=== PATIENT | female | born 1955 | race Caucasian/White ===

== ENCOUNTER 2018-01-04 18:01 | Emergency (ER) | payer OTHER ==
[~2018-01-04] VITALS: Ht 152.4 cm; Wt 59.0 kg
[2018-01-05 00:20] VITALS: BP 124/69
== END 2018-01-05 02:05 | disposition home or self-care (01) ==
LOC: ER 18:32
DX: Z48.00 Encounter for change or removal of nonsurgical wound dressing (principal); E11.9 Type 2 diabetes mellitus without complications; Z89.429 Acquired absence of other toe(s), unspecified side; Z87.891 Personal history of nicotine dependence
CPT/HCPCS: 99283

== ENCOUNTER 2022-01-25 05:55 | Inpatient (IN) | payer BC, MEDICAID ==
[~2022-01-25] VITALS: Ht 144.8 cm; Wt 73.9 kg
[2022-01-25] MEDS ORDERED: IPRATROPIUM BROMIDE (0.02%) 0.5MG/2.5ML NEB HHN STA (06:04)
[2022-01-25] MEDS ORDERED: METHYLPREDNISOLONE SOD SUCC 125 MG/2 ML VIAL IV STA (06:06)
[2022-01-25] MEDS ORDERED: MAGNESIUM 2 G PREMIX 50 ML IV ONE (06:15)
[2022-01-25] MEDS: ALBUTEROL (0.083%) 2.5MG/3ML NEB HHN SCH ×2 (06:28→07:46)
[2022-01-25 06:31] LABS: CHLORIDE 108 mEq/L (98-107)
[2022-01-25 06:33] LABS: BASOPHILS % 0.5 % (0.0-2.0); EOSINOPHILS % 1.6 % (0.0-5.0); HEMATOCRIT. 22.7 % (36.0-48.0); HEMOGLOBIN. 7.3 g/dL (12.0-16.0); MEAN CORPUSCULAR HEMOGLOBIN 25.4 pg (28.0-32.0); MEAN CORPUSCULAR VOLUME 78.8 fL (81.0-99.0); MEAN PLATELET VOLUME 7.9 fl (7.4-10.4); MONOCYTES % 5.7 % (2.0-8.0); NEUTROPHILS % 62.2 % (40.0-76.0); PLATELET 326 x1000/uL (130-400); RED BLOOD CELL COUNT 2.88 mill/uL (4.2-5.4); RED CELL DISTRIBUTION WIDTH 15.5 % (11.6-14.6)
[2022-01-25] MEDS ORDERED: DEXTROSE 50% WATER 50ML SYRINGE IV PRN (11:15)
[2022-01-25] MEDS: BLOOD SUGAR DIAGNOSTIC STRIP TEST SCH ×3 (11:40→21:00)
[2022-01-25 12:00] VITALS: BP 130/55
[2022-01-25] MEDS ORDERED: METHYLPREDNISOLONE SOD SUCC 40 MG/ML VIAL IV SCH (12:00)
[2022-01-25] MEDS ORDERED: ONDANSETRON 4MG/5ML UDC PO NR (12:00)
[2022-01-25] MEDS: HYDROCODONE/ACETAMINOPHEN 5/325MG TABLET PO PRN ×2 (12:42→17:19)
[2022-01-25] MEDS: INSULIN LISPRO 100 UNITS/ML SUBCUT SCH ×3 (12:44→21:32)
[2022-01-25] MEDS ORDERED: NALOXONE HCL 0.4MG/ML VIAL IV PRN (12:45)
[2022-01-25] MEDS: IPRATROPIUM BROMIDE (0.02%) 0.5MG/2.5ML NEB HHN SCH ×2 (13:11→20:32)
[2022-01-25] MEDS ORDERED: INSULIN LISPRO 100 UNITS/ML SUBCUT NR (14:00)
[2022-01-25] MEDS ORDERED: INSULIN GLARGINE 100 UNITS/ML SUBCUT NR (14:00)
[2022-01-25] MEDS ORDERED: POTASSIUM CHLORIDE 20MEQ TABLET SR PO NR (15:45)
[2022-01-25 16:00] VITALS: BP 144/61
[2022-01-25] MEDS ORDERED: CEFTRIAXONE 1,000 MG in DEXTROSE 5% WATER 50 ML IV SCH (16:00)
[2022-01-25] MEDS: FUROSEMIDE 40MG/4ML VIAL IVP SCH (16:04)
[2022-01-25 16:16] VITALS: BP 131/61
[2022-01-25] MEDS ORDERED: MORPHINE SULFATE 2 MG/ML CPJ (NOT FOR IM USE) IV NR (18:30)
[2022-01-25] MEDS ORDERED: ASPI-1497 PO (18:32)
[2022-01-25] MEDS ORDERED: METF-874 PO (18:35)
[2022-01-25] MEDS ORDERED: AMLO10TA80 PO (18:35)
[2022-01-25] MEDS ORDERED: GLIM2TAB30 PO (18:35)
[2022-01-25] MEDS ORDERED: HYDR25TA PO (18:35)
[2022-01-25 20:00] VITALS: BP 143/66
[2022-01-25 20:44] LABS: CLARITY URINE CLOUDY (CLEAR); COLOR URINE YELLOW (YELLOW); KETONES URINE NEGATIVE (NEGATIVE); LEUKOCYTE ESTERASE URINE 3+ (NEGATIVE); NITRITE URINE NEGATIVE (NEGATIVE); OCCULT BLOOD URINE TRACE (NEGATIVE); PROTEIN URINE 2+ (NEGATIVE); SPECIFIC GRAVITY URINE 1.014 (1.005-1.030); UROBILINOGEN URINE 0.2 E.U./dL (0.2-1.0)
[2022-01-25] MEDS ORDERED: FAMOTIDINE 20MG TABLET PO SCH (21:00)
[2022-01-26] VITALS (36 sets, daily range): BP systolic 116–158; BP diastolic 63–86
[2022-01-26] MEDS: HYDROCODONE/ACETAMINOPHEN 5/325MG TABLET PO PRN (00:09)
[2022-01-26] MEDS: IPRATROPIUM BROMIDE (0.02%) 0.5MG/2.5ML NEB HHN SCH ×4 (01:25→17:00)
[2022-01-26] MEDS ORDERED: MORPHINE SULFATE 2 MG/ML CPJ (NOT FOR IM USE) IV SCH (05:15)
[2022-01-26] MEDS: PROPOFOL 10MG/ML 100ML 100 ML IV PRN ×2 (06:28→23:37)
[2022-01-26] MEDS: FENTANYL 2500MCG/250ML PMX 250 ML IV PRN (07:01)
[2022-01-26 07:09] LABS: BG BASE EXCESS -10.7 mmol/L (-2.0-2.0); BG CARBOXYHEMOGLOBIN 0.3 % (0.5-1.5); BG DEOXYHEMOGLOBIN 0.5 % (0.0-5.0); BG FRACTION INSPIRED OXYGEN 100; BG HCO3 ACT 15.2 mmol/L (22.0-26.0); BG METHEMOGLOBIN 0.3 % (0.0-1.5); BG OXYGEN SATURATION 99.5 % (92.0-98.5); BG OXYHEMOGLOBIN 98.9 % (94.0-97.0); BG PCO2 33.4 mmHg (35.0-45.0); BG PH 7.275 (7.350-7.450); BG PO2 338.8 mmHg (75.0-100.0); BG SAMPLE SITE RIGHT RADIAL; BG TOTAL HEMOGLOBIN 7.1 g/dL (12.0-18.0); BG VENT MODE VENT - AC
[2022-01-26 07:21] LABS: MEAN CORPUSCULAR HEMOGLOBIN 25.7 pg (28.0-32.0); MEAN CORPUSCULAR VOLUME 79.1 fL (81.0-99.0); MEAN PLATELET VOLUME 8.1 fl (7.4-10.4); PLATELET 282 x1000/uL (130-400); RED BLOOD CELL COUNT 2.56 mill/uL (4.2-5.4); RED CELL DISTRIBUTION WIDTH 16.1 % (11.6-14.6)
[2022-01-26 07:32] LABS: HEMATOCRIT. 20.3 % (36.0-48.0); HEMOGLOBIN. 6.6 g/dL (12.0-16.0)
[2022-01-26] MEDS ORDERED: LIDOCAINE HCL 1% 20ML VIAL (Pyxis) INJ ONE (08:11)
[2022-01-26] MEDS: BLOOD SUGAR DIAGNOSTIC STRIP TEST SCH ×4 (08:45→21:00)
[2022-01-26 08:52] LABS: PLATELET ESTIMATE NORMAL
[2022-01-26] MEDS: FUROSEMIDE 40MG/4ML VIAL IVP SCH (09:22)
[2022-01-26] MEDS: INSULIN LISPRO 100 UNITS/ML SUBCUT SCH ×4 (09:23→21:00)
[2022-01-26] MEDS: PIPERACILLIN/TAZOBACTAM 3.375 G in DEXTROSE 5% WATER 50 ML IV SCH ×3 (09:28→23:18)
[2022-01-26] MEDS ORDERED: INSULIN GLARGINE 100 UNITS/ML SUBCUT NR (10:15)
[2022-01-26] MEDS: SODIUM CHLORIDE 0.9% 1,000 ML IV SCH ×2 (10:36→23:35)
[2022-01-26 11:46] LABS: PROTHROMBIN TIME 10.9 sec (9.6-11.0)
[2022-01-26 11:52] LABS: TOTAL IRON BINDING CAPACITY 328 ug/dL (250-450)
[2022-01-26] MEDS ORDERED: IPRATROPIUM/ALBUTEROL 0.5-3(2.5)MG/3ML NEB HHN PRN (13:15)
[2022-01-26] MEDS ORDERED: PROPOFOL 10MG/ML 100ML 100 ML IV PRN (13:15)
[2022-01-26 15:28] LABS: HEMATOCRIT 27.2 % (36.0-48.0)
[2022-01-26] MEDS: PANTOPRAZOLE SODIUM 40 MG/VIAL IV SCH ×2 (15:34→23:27)
[2022-01-26] MEDS: IPRATROPIUM/ALBUTEROL 0.5-3(2.5)MG/3ML NEB HHN SCH (21:15)
[2022-01-26] MEDS: INSULIN GLARGINE 100 UNITS/ML SUBCUT SCH (22:00)
[2022-01-27] VITALS (60 sets, daily range): BP systolic 73–176; BP diastolic 47–93
[2022-01-27] MEDS: IPRATROPIUM BROMIDE (0.02%) 0.5MG/2.5ML NEB HHN SCH (00:37)
[2022-01-27 05:42] LABS: HEMATOCRIT. 26.9 % (36.0-48.0); HEMOGLOBIN. 9.5 g/dL (12.0-16.0); MEAN CORPUSCULAR HEMOGLOBIN 27.8 pg (28.0-32.0); MEAN CORPUSCULAR VOLUME 78.3 fL (81.0-99.0); MEAN PLATELET VOLUME 7.9 fl (7.4-10.4); PLATELET 245 x1000/uL (130-400); RED BLOOD CELL COUNT 3.43 mill/uL (4.2-5.4); RED CELL DISTRIBUTION WIDTH 16.4 % (11.6-14.6)
[2022-01-27] MEDS: PIPERACILLIN/TAZOBACTAM 3.375 G in DEXTROSE 5% WATER 50 ML IV SCH ×3 (07:14→21:33)
[2022-01-27 08:19] LABS: PLATELET ESTIMATE NORMAL
[2022-01-27] MEDS: INSULIN LISPRO 100 UNITS/ML SUBCUT SCH ×4 (08:20→21:00)
[2022-01-27] MEDS: BLOOD SUGAR DIAGNOSTIC STRIP TEST SCH ×4 (08:33→21:33)
[2022-01-27] MEDS: IPRATROPIUM/ALBUTEROL 0.5-3(2.5)MG/3ML NEB HHN SCH ×3 (08:47→20:13)
[2022-01-27 08:53] LABS: BG BASE EXCESS -1.4 mmol/L (-2.0-2.0); BG CARBOXYHEMOGLOBIN 0.3 % (0.5-1.5); BG DEOXYHEMOGLOBIN 2.1 % (0.0-5.0); BG FRACTION INSPIRED OXYGEN 40; BG HCO3 ACT 20.3 mmol/L (22.0-26.0); BG METHEMOGLOBIN 0.2 % (0.0-1.5); BG OXYGEN SATURATION 97.9 % (92.0-98.5); BG OXYHEMOGLOBIN 97.4 % (94.0-97.0); BG PCO2 24.9 mmHg (35.0-45.0); BG PH 7.529 (7.350-7.450); BG PO2 107.2 mmHg (75.0-100.0); BG SAMPLE SITE RIGHT BRACHIAL; BG TOTAL HEMOGLOBIN 10.1 g/dL (12.0-18.0); BG VENT MODE VENT - AC
[2022-01-27] MEDS: PANTOPRAZOLE SODIUM 40 MG/VIAL IV SCH ×2 (09:44→21:33)
[2022-01-27] MEDS: SODIUM CHLORIDE 0.9% 1,000 ML IV SCH ×2 (10:01→23:06)
[2022-01-27] MEDS: INSULIN GLARGINE 100 UNITS/ML SUBCUT SCH (10:21)
[2022-01-27] MEDS: AMLODIPINE 10MG TABLET PO SCH (10:21)
[2022-01-27 11:58] LABS: CREATINE KINASE 299 IU/L (26-192)
[2022-01-27] MEDS ORDERED: HYDRALAZINE HCL 50MG TABLET PO SCH ×3 (12:00→21:00)
[2022-01-27] MEDS: HYDRALAZINE HCL 100MG TABLET PO SCH ×2 (17:29→21:33)
[2022-01-28] VITALS (43 sets, daily range): BP systolic 107–176; BP diastolic 38–137
[2022-01-28] MEDS: FENTANYL 2500MCG/250ML PMX 250 ML IV PRN (00:18)
[2022-01-28] MEDS: IPRATROPIUM/ALBUTEROL 0.5-3(2.5)MG/3ML NEB HHN SCH ×4 (02:38→20:16)
[2022-01-28 05:38] LABS: BASOPHILS % 0.1 % (0.0-2.0); HEMOGLOBIN. 9.4 g/dL (12.0-16.0)
[2022-01-28 05:49] LABS: EOSINOPHILS % 0.2 % (0.0-5.0); HEMATOCRIT. 27.3 % (36.0-48.0); LYMPHOCYTES % 8.2 % (20.0-50.0); MEAN CORPUSCULAR HEMOGLOBIN 27.6 pg (28.0-32.0); MEAN CORPUSCULAR VOLUME 79.9 fL (81.0-99.0); MONOCYTES % 7.8 % (2.0-8.0); NEUTROPHILS % 83.7 % (40.0-76.0); PLATELET 219 x1000/uL (130-400); RED BLOOD CELL COUNT 3.41 mill/uL (4.2-5.4); RED CELL DISTRIBUTION WIDTH 16.6 % (11.6-14.6)
[2022-01-28] MEDS: HYDRALAZINE HCL 100MG TABLET PO SCH ×3 (06:12→21:21)
[2022-01-28] MEDS: PIPERACILLIN/TAZOBACTAM 3.375 G in DEXTROSE 5% WATER 50 ML IV SCH ×3 (06:12→21:22)
[2022-01-28 06:24] LABS: PHOSPHORUS 4.3 mg/dL (2.5-4.9)
[2022-01-28 08:27] LABS: BG BASE EXCESS -3.1 mmol/L (-2.0-2.0); BG CARBOXYHEMOGLOBIN 0.1 % (0.5-1.5); BG DEOXYHEMOGLOBIN 3.2 % (0.0-5.0); BG FRACTION INSPIRED OXYGEN 30; BG HCO3 ACT 21.5 mmol/L (22.0-26.0); BG METHEMOGLOBIN 0.3 % (0.0-1.5); BG OXYGEN SATURATION 96.8 % (92.0-98.5); BG OXYHEMOGLOBIN 96.4 % (94.0-97.0); BG PCO2 36.8 mmHg (35.0-45.0); BG PH 7.385 (7.350-7.450); BG PO2 92.4 mmHg (75.0-100.0); BG SAMPLE SITE RIGHT BRACHIAL; BG TOTAL HEMOGLOBIN 10.1 g/dL (12.0-18.0); BG VENT MODE VENT - AC
[2022-01-28] MEDS ORDERED: SODIUM BICARBONATE 8.4% 1 MEQ/ML 50ML SYR IV ONE (08:56)
[2022-01-28] MEDS: PANTOPRAZOLE SODIUM 40 MG/VIAL IV SCH ×2 (09:37→20:36)
[2022-01-28] MEDS: AMLODIPINE 10MG TABLET PO SCH (09:39)
[2022-01-28] MEDS: BLOOD SUGAR DIAGNOSTIC STRIP TEST SCH ×4 (12:15→20:35)
[2022-01-28] MEDS: INSULIN LISPRO 100 UNITS/ML SUBCUT SCH ×4 (12:23→20:35)
[2022-01-28 14:04] LABS: BG BASE EXCESS -4.6 mmol/L (-2.0-2.0); BG CARBOXYHEMOGLOBIN 0.3 % (0.5-1.5); BG DEOXYHEMOGLOBIN 4.1 % (0.0-5.0); BG FRACTION INSPIRED OXYGEN 30; BG HCO3 ACT 19.7 mmol/L (22.0-26.0); BG METHEMOGLOBIN 0.2 % (0.0-1.5); BG OXYGEN SATURATION 95.9 % (92.0-98.5); BG OXYHEMOGLOBIN 95.4 % (94.0-97.0); BG PCO2 33.6 mmHg (35.0-45.0); BG PH 7.387 (7.350-7.450); BG PO2 84.6 mmHg (75.0-100.0); BG SAMPLE SITE RIGHT RADIAL; BG TOTAL HEMOGLOBIN 10.1 g/dL (12.0-18.0); BG VENT MODE VENT - CPAP
[2022-01-28] MEDS: SODIUM CHLORIDE 0.9% 1,000 ML IV SCH (14:47)
[2022-01-28] MEDS ORDERED: IPRATROPIUM BROMIDE (0.02%) 0.5MG/2.5ML NEB HHN SCH (23:30)
[2022-01-29] VITALS (45 sets, daily range): BP systolic 113–200; BP diastolic 32–90
[2022-01-29] MEDS: IPRATROPIUM/ALBUTEROL 0.5-3(2.5)MG/3ML NEB HHN SCH ×4 (00:03→20:17)
[2022-01-29] MEDS: ACETYLCYSTEINE 100MG/ML 10% VIAL 4ML INH SCH ×4 (00:03→12:48)
[2022-01-29 01:42] LABS: BG CARBOXYHEMOGLOBIN 0.3 % (0.5-1.5); BG DEOXYHEMOGLOBIN 1.5 % (0.0-5.0); BG FRACTION INSPIRED OXYGEN 100; BG HCO3 ACT 17.3 mmol/L (22.0-26.0); BG OXYGEN SATURATION 98.5 % (92.0-98.5); BG OXYHEMOGLOBIN 98.2 % (94.0-97.0); BG PCO2 30.5 mmHg (35.0-45.0); BG PH 7.371 (7.350-7.450); BG PO2 149.7 mmHg (75.0-100.0); BG SAMPLE SITE LEFT RADIAL; BG TOTAL HEMOGLOBIN 9.7 g/dL (12.0-18.0); BG VENT MODE MASK - NRB
[2022-01-29] MEDS: PIPERACILLIN/TAZOBACTAM 3.375 G in DEXTROSE 5% WATER 50 ML IV SCH ×3 (05:25→21:39)
[2022-01-29] MEDS: HYDRALAZINE HCL 100MG TABLET PO SCH ×3 (05:26→21:38)
[2022-01-29 05:40] LABS: HEMATOCRIT. 27.2 % (36.0-48.0); HEMOGLOBIN. 8.8 g/dL (12.0-16.0); MEAN CORPUSCULAR HEMOGLOBIN 26.2 pg (28.0-32.0); MEAN CORPUSCULAR VOLUME 80.9 fL (81.0-99.0); MEAN PLATELET VOLUME 7.8 fl (7.4-10.4); PLATELET 211 x1000/uL (130-400); RED BLOOD CELL COUNT 3.36 mill/uL (4.2-5.4); RED CELL DISTRIBUTION WIDTH 16.4 % (11.6-14.6)
[2022-01-29] MEDS: INSULIN LISPRO 100 UNITS/ML SUBCUT SCH ×3 (08:03→18:21)
[2022-01-29] MEDS: BLOOD SUGAR DIAGNOSTIC STRIP TEST SCH ×4 (08:03→18:06)
[2022-01-29 08:04] LABS: PLATELET ESTIMATE NORMAL
[2022-01-29] MEDS: PANTOPRAZOLE SODIUM 40 MG/VIAL IV SCH ×2 (08:24→21:38)
[2022-01-29] MEDS: AMLODIPINE 10MG TABLET PO SCH (08:25)
[2022-01-29] MEDS ORDERED: FUROSEMIDE 20MG/2ML VIAL IVP NR (09:15)
[2022-01-29] MEDS: DOCUSATE SODIUM SUGAR FREE 100MG/10ML UDC NG SCH (18:20)
[2022-01-30] VITALS (52 sets, daily range): BP systolic 122–163; BP diastolic 39–99
[2022-01-30] MEDS: BLOOD SUGAR DIAGNOSTIC STRIP TEST SCH ×4 (00:26→23:43)
[2022-01-30] MEDS: IPRATROPIUM/ALBUTEROL 0.5-3(2.5)MG/3ML NEB HHN SCH ×4 (00:35→21:41)
[2022-01-30] MEDS: ONDANSETRON HCL 4MG/2ML INJ IV PRN ×3 (01:23→21:30)
[2022-01-30 02:30] LABS: BG BASE EXCESS -7.9 mmol/L (-2.0-2.0); BG CARBOXYHEMOGLOBIN 0.3 % (0.5-1.5); BG DEOXYHEMOGLOBIN 4.3 % (0.0-5.0); BG FRACTION INSPIRED OXYGEN 100; BG HCO3 ACT 17.9 mmol/L (22.0-26.0); BG METHEMOGLOBIN 0.4 % (0.0-1.5); BG OXYGEN SATURATION 95.7 % (92.0-98.5); BG PCO2 37.5 mmHg (35.0-45.0); BG PH 7.297 (7.350-7.450); BG PO2 89.3 mmHg (75.0-100.0); BG SAMPLE SITE LEFT RADIAL; BG VENT MODE MASK - NRB
[2022-01-30] MEDS ORDERED: SODIUM BICARBONATE 8.4% 1 MEQ/ML 50ML SYR IV NR (02:45)
[2022-01-30] MEDS: FENTANYL 2500MCG/250ML PMX 250 ML IV PRN (03:18)
[2022-01-30 04:19] LABS: BG BASE EXCESS -5.1 mmol/L (-2.0-2.0); BG CARBOXYHEMOGLOBIN 0.3 % (0.5-1.5); BG DEOXYHEMOGLOBIN 7.4 % (0.0-5.0); BG FRACTION INSPIRED OXYGEN 100; BG HCO3 ACT 19.8 mmol/L (22.0-26.0); BG METHEMOGLOBIN 0.3 % (0.0-1.5); BG OXYGEN SATURATION 92.6 % (92.0-98.5); BG PCO2 36.4 mmHg (35.0-45.0); BG PH 7.354 (7.350-7.450); BG PO2 69.9 mmHg (75.0-100.0); BG SAMPLE SITE LEFT RADIAL; BG TOTAL HEMOGLOBIN 10.2 g/dL (12.0-18.0); BG VENT MODE VENT - AC
[2022-01-30] MEDS ORDERED: DEXT 5%/0.45% NACL 1000ML 1,000 ML IV SCH (04:30)
[2022-01-30] MEDS: HYDRALAZINE HCL 100MG TABLET PO SCH ×3 (05:02→21:23)
[2022-01-30] MEDS: PIPERACILLIN/TAZOBACTAM 3.375 G in DEXTROSE 5% WATER 50 ML IV SCH ×3 (05:02→21:22)
[2022-01-30] MEDS: INSULIN LISPRO 100 UNITS/ML SUBCUT SCH ×5 (05:06→23:42)
[2022-01-30] MEDS: MIDAZOLAM 100MG/100ML PMX 100 ML IV PRN (05:21)
[2022-01-30 05:40] LABS: HEMATOCRIT. 28.5 % (36.0-48.0); HEMOGLOBIN. 9.2 g/dL (12.0-16.0); MEAN CORPUSCULAR HEMOGLOBIN 26.3 pg (28.0-32.0); MEAN CORPUSCULAR VOLUME 81.5 fL (81.0-99.0); MEAN PLATELET VOLUME 8.1 fl (7.4-10.4); PLATELET 234 x1000/uL (130-400); RED BLOOD CELL COUNT 3.49 mill/uL (4.2-5.4); RED CELL DISTRIBUTION WIDTH 16.4 % (11.6-14.6)
[2022-01-30 05:55] LABS: PHOSPHORUS 4.2 mg/dL (2.5-4.9)
[2022-01-30] MEDS: ACETYLCYSTEINE 100MG/ML 10% VIAL 4ML INH SCH ×2 (07:32→14:08)
[2022-01-30 07:35] LABS: PLATELET ESTIMATE NORMAL
[2022-01-30] MEDS: AMLODIPINE 10MG TABLET PO SCH (08:32)
[2022-01-30] MEDS: DOCUSATE SODIUM SUGAR FREE 100MG/10ML UDC NG SCH (08:32)
[2022-01-30] MEDS: PANTOPRAZOLE SODIUM 40 MG/VIAL IV SCH ×2 (08:32→21:23)
[2022-01-30] MEDS ORDERED: ETOMIDATE 2MG/ML 10ML VIAL IV ONE (08:48)
[2022-01-30] MEDS ORDERED: SUCCINYLCHOLINE CHLORIDE 200MG/10ML IV ONE (08:48)
[2022-01-30 09:03] LABS: BG BASE EXCESS -4.8 mmol/L (-2.0-2.0); BG CARBOXYHEMOGLOBIN 0.3 % (0.5-1.5); BG DEOXYHEMOGLOBIN 0.8 % (0.0-5.0); BG FRACTION INSPIRED OXYGEN 100; BG METHEMOGLOBIN 0.4 % (0.0-1.5); BG OXYGEN SATURATION 99.2 % (92.0-98.5); BG OXYHEMOGLOBIN 98.5 % (94.0-97.0); BG PCO2 35.8 mmHg (35.0-45.0); BG PH 7.366 (7.350-7.450); BG PO2 273.8 mmHg (75.0-100.0); BG SAMPLE SITE LEFT BRACHIAL; BG TOTAL HEMOGLOBIN 8.8 g/dL (12.0-18.0); BG VENT MODE VENT - AC
[2022-01-30] MEDS: METOCLOPRAMIDE HCL 10MG/2ML VIAL IV SCH ×2 (17:21→23:42)
[2022-01-31] VITALS (46 sets, daily range): BP systolic 120–152; BP diastolic 52–75
[2022-01-31] MEDS: IPRATROPIUM/ALBUTEROL 0.5-3(2.5)MG/3ML NEB HHN SCH ×4 (00:56→18:00)
[2022-01-31] MEDS: ACETYLCYSTEINE 100MG/ML 10% VIAL 4ML INH SCH ×3 (00:56→14:52)
[2022-01-31] MEDS: PIPERACILLIN/TAZOBACTAM 3.375 G in DEXTROSE 5% WATER 50 ML IV SCH ×3 (05:27→21:09)
[2022-01-31] MEDS: METOCLOPRAMIDE HCL 10MG/2ML VIAL IV SCH ×4 (05:27→23:23)
[2022-01-31] MEDS: BLOOD SUGAR DIAGNOSTIC STRIP TEST SCH ×3 (05:28→16:58)
[2022-01-31] MEDS: HYDRALAZINE HCL 100MG TABLET PO SCH (05:28)
[2022-01-31] MEDS: INSULIN LISPRO 100 UNITS/ML SUBCUT SCH ×3 (05:28→16:58)
[2022-01-31 05:39] LABS: HEMATOCRIT. 24.4 % (36.0-48.0); HEMOGLOBIN. 8.1 g/dL (12.0-16.0); MEAN CORPUSCULAR HEMOGLOBIN 26.8 pg (28.0-32.0); MEAN CORPUSCULAR VOLUME 81.2 fL (81.0-99.0); MEAN PLATELET VOLUME 8.2 fl (7.4-10.4); PLATELET 204 x1000/uL (130-400); RED BLOOD CELL COUNT 3.01 mill/uL (4.2-5.4); RED CELL DISTRIBUTION WIDTH 16.3 % (11.6-14.6)
[2022-01-31 07:24] LABS: PLATELET ESTIMATE NORMAL
[2022-01-31] MEDS: PANTOPRAZOLE SODIUM 40 MG/VIAL IV SCH ×2 (07:48→21:09)
[2022-01-31] MEDS: ONDANSETRON HCL 4MG/2ML INJ IV PRN (07:48)
[2022-01-31] MEDS: AMLODIPINE 10MG TABLET PO SCH (07:48)
[2022-01-31] MEDS: DOCUSATE SODIUM SUGAR FREE 100MG/10ML UDC NG SCH (07:48)
[2022-01-31] MEDS: ACETAMINOPHEN 325MG TABLET PO PRN ×2 (08:08→19:38)
[2022-01-31 09:03] LABS: BG CARBOXYHEMOGLOBIN 0.3 % (0.5-1.5); BG DEOXYHEMOGLOBIN 8.3 % (0.0-5.0); BG FRACTION INSPIRED OXYGEN 40; BG HCO3 ACT 21.6 mmol/L (22.0-26.0); BG METHEMOGLOBIN 0.5 % (0.0-1.5); BG OXYGEN SATURATION 91.6 % (92.0-98.5); BG OXYHEMOGLOBIN 90.9 % (94.0-97.0); BG PCO2 32.2 mmHg (35.0-45.0); BG PH 7.445 (7.350-7.450); BG SAMPLE SITE LEFT BRACHIAL; BG TOTAL HEMOGLOBIN 8.4 g/dL (12.0-18.0); BG VENT MODE VENT - AC
[2022-01-31] MEDS: FUROSEMIDE 100MG/10ML VIAL IVP SCH (12:45)
[2022-01-31] MEDS: METHYLPREDNISOLONE SOD SUCC 40 MG/ML VIAL IV SCH ×2 (12:45→21:09)
[2022-01-31 13:39] LABS: CLARITY URINE CLOUDY (CLEAR); COLOR URINE YELLOW (YELLOW); KETONES URINE TRACE (NEGATIVE); LEUKOCYTE ESTERASE URINE 2+ (NEGATIVE); NITRITE URINE NEGATIVE (NEGATIVE); OCCULT BLOOD URINE NEGATIVE (NEGATIVE); PROTEIN URINE 2+ (NEGATIVE); SPECIFIC GRAVITY URINE 1.022 (1.005-1.030)
[2022-01-31] MEDS: MIDAZOLAM 100MG/100ML PMX 100 ML IV PRN (20:54)
[2022-01-31] MEDS: FENTANYL 2500MCG/250ML PMX 250 ML IV PRN (23:53)
[2022-02-01] VITALS (50 sets, daily range): BP systolic 74–173; BP diastolic 28–91
[2022-02-01] MEDS: BLOOD SUGAR DIAGNOSTIC STRIP TEST SCH ×4 (00:05→17:33)
[2022-02-01] MEDS: INSULIN LISPRO 100 UNITS/ML SUBCUT SCH ×4 (00:05→17:34)
[2022-02-01] MEDS: IPRATROPIUM/ALBUTEROL 0.5-3(2.5)MG/3ML NEB HHN SCH ×4 (00:41→20:17)
[2022-02-01] MEDS: ACETYLCYSTEINE 100MG/ML 10% VIAL 4ML INH SCH ×3 (00:41→15:45)
[2022-02-01] MEDS: METOCLOPRAMIDE HCL 10MG/2ML VIAL IV SCH ×3 (05:21→17:33)
[2022-02-01] MEDS: METHYLPREDNISOLONE SOD SUCC 40 MG/ML VIAL IV SCH ×3 (05:21→21:13)
[2022-02-01] MEDS: PIPERACILLIN/TAZOBACTAM 3.375 G in DEXTROSE 5% WATER 50 ML IV SCH ×2 (05:22→21:13)
[2022-02-01 05:35] LABS: HEMATOCRIT. 24.8 % (36.0-48.0); HEMOGLOBIN. 8.1 g/dL (12.0-16.0); MEAN CORPUSCULAR HEMOGLOBIN 26.6 pg (28.0-32.0); MEAN CORPUSCULAR VOLUME 81.2 fL (81.0-99.0); MEAN PLATELET VOLUME 8.4 fl (7.4-10.4); PLATELET 214 x1000/uL (130-400); RED BLOOD CELL COUNT 3.06 mill/uL (4.2-5.4); RED CELL DISTRIBUTION WIDTH 16.5 % (11.6-14.6)
[2022-02-01 05:45] LABS: PHOSPHORUS 4.2 mg/dL (2.5-4.9)
[2022-02-01] MEDS: FUROSEMIDE 100MG/10ML VIAL IVP SCH (08:22)
[2022-02-01] MEDS: AMLODIPINE 10MG TABLET PO SCH (08:22)
[2022-02-01] MEDS: DOCUSATE SODIUM SUGAR FREE 100MG/10ML UDC NG SCH (08:22)
[2022-02-01] MEDS: PANTOPRAZOLE SODIUM 40 MG/VIAL IV SCH ×2 (08:24→21:13)
[2022-02-01] MEDS: ACETAMINOPHEN 325MG TABLET PO PRN (08:26)
[2022-02-01 08:54] LABS: PLATELET ESTIMATE NORMAL
[2022-02-01 09:57] LABS: BG BASE EXCESS -1.5 mmol/L (-2.0-2.0); BG CARBOXYHEMOGLOBIN 0.3 % (0.5-1.5); BG FRACTION INSPIRED OXYGEN 50; BG HCO3 ACT 22.6 mmol/L (22.0-26.0); BG METHEMOGLOBIN 0.3 % (0.0-1.5); BG OXYHEMOGLOBIN 96.4 % (94.0-97.0); BG PCO2 35.2 mmHg (35.0-45.0); BG PH 7.426 (7.350-7.450); BG PO2 92.9 mmHg (75.0-100.0); BG SAMPLE SITE LEFT BRACHIAL; BG TOTAL HEMOGLOBIN 8.2 g/dL (12.0-18.0); BG VENT MODE VENT - AC
[2022-02-01] MEDS ORDERED: INSULIN GLARGINE 100 UNITS/ML SUBCUT NR (10:45)
[2022-02-01] MEDS ORDERED: LACTULOSE 20G/30ML UDC PO NR (10:45)
[2022-02-01 13:06] LABS: *CREATININE RANDOM URINE 123.2 mg/dL (Not Estab.); MICROALBUMIN RANDOM URINE 292.6 ug/mL (Not Estab.)
[2022-02-01] MEDS ORDERED: POLYETHYLENE GLYCOL 3350 (17GM) 1 DOSE PACK PO PRN (16:00)
[2022-02-01] MEDS ORDERED: INSULIN GLARGINE 100 UNITS/ML SUBCUT SCH (22:00)
[2022-02-02] VITALS (54 sets, daily range): BP systolic 100–174; BP diastolic 24–87
[2022-02-02] MEDS: INSULIN LISPRO 100 UNITS/ML SUBCUT SCH ×4 (00:04→17:31)
[2022-02-02] MEDS: BLOOD SUGAR DIAGNOSTIC STRIP TEST SCH ×4 (00:04→17:30)
[2022-02-02] MEDS: METOCLOPRAMIDE HCL 10MG/2ML VIAL IV SCH ×4 (00:04→17:30)
[2022-02-02] MEDS: ACETYLCYSTEINE 100MG/ML 10% VIAL 4ML INH SCH ×2 (00:25→09:37)
[2022-02-02] MEDS: IPRATROPIUM/ALBUTEROL 0.5-3(2.5)MG/3ML NEB HHN SCH ×3 (00:25→20:00)
[2022-02-02] MEDS: MIDAZOLAM 100MG/100ML PMX 100 ML IV PRN ×2 (04:52→21:08)
[2022-02-02 05:05] LABS: HEMATOCRIT. 26.1 % (36.0-48.0); HEMOGLOBIN. 8.3 g/dL (12.0-16.0); MEAN CORPUSCULAR HEMOGLOBIN 27.1 pg (28.0-32.0); MEAN CORPUSCULAR VOLUME 84.7 fL (81.0-99.0); MEAN PLATELET VOLUME 8.8 fl (7.4-10.4); PLATELET 232 x1000/uL (130-400); RED BLOOD CELL COUNT 3.08 mill/uL (4.2-5.4); RED CELL DISTRIBUTION WIDTH 16.4 % (11.6-14.6)
[2022-02-02] MEDS: METHYLPREDNISOLONE SOD SUCC 40 MG/ML VIAL IV SCH (05:19)
[2022-02-02 06:38] LABS: PHOSPHORUS 4.2 mg/dL (2.5-4.9)
[2022-02-02 08:10] LABS: PLATELET ESTIMATE NORMAL
[2022-02-02 08:37] LABS: BG BASE EXCESS -1.9 mmol/L (-2.0-2.0); BG CARBOXYHEMOGLOBIN 0.3 % (0.5-1.5); BG FRACTION INSPIRED OXYGEN 50; BG HCO3 ACT 22.6 mmol/L (22.0-26.0); BG METHEMOGLOBIN 0.1 % (0.0-1.5); BG OXYHEMOGLOBIN 97.6 % (94.0-97.0); BG PCO2 36.9 mmHg (35.0-45.0); BG PH 7.404 (7.350-7.450); BG PO2 122.3 mmHg (75.0-100.0); BG SAMPLE SITE RIGHT BRACHIAL; BG TOTAL HEMOGLOBIN 8.5 g/dL (12.0-18.0); BG VENT MODE VENT - AC
[2022-02-02] MEDS ORDERED: METHYLPREDNISOLONE SOD SUCC 40 MG/ML VIAL IV SCH (09:00)
[2022-02-02] MEDS ORDERED: POTASSIUM CHLORIDE 20MEQ/PACKET PO NR (09:15)
[2022-02-02] MEDS: PIPERACILLIN/TAZOBACTAM 3.375 G in DEXTROSE 5% WATER 50 ML IV SCH ×2 (09:20→21:56)
[2022-02-02] MEDS: PANTOPRAZOLE SODIUM 40 MG/VIAL IV SCH ×2 (09:20→21:56)
[2022-02-02] MEDS: DOCUSATE SODIUM SUGAR FREE 100MG/10ML UDC NG SCH (09:21)
[2022-02-02] MEDS: AMLODIPINE 10MG TABLET PO SCH (09:21)
[2022-02-02] MEDS: INSULIN GLARGINE 100 UNITS/ML SUBCUT SCH ×2 (09:23→23:53)
[2022-02-02] MEDS ORDERED: INSULIN LISPRO 100 UNITS/ML SUBCUT SCH (17:30)
[2022-02-03] VITALS (57 sets, daily range): BP systolic 112–163; BP diastolic 47–110
[2022-02-03] MEDS: ACETYLCYSTEINE 100MG/ML 10% VIAL 4ML INH SCH (00:34)
[2022-02-03] MEDS: IPRATROPIUM/ALBUTEROL 0.5-3(2.5)MG/3ML NEB HHN SCH ×4 (00:34→20:59)
[2022-02-03] MEDS: BLOOD SUGAR DIAGNOSTIC STRIP TEST SCH ×5 (00:59→23:17)
[2022-02-03] MEDS: INSULIN LISPRO 100 UNITS/ML SUBCUT SCH ×5 (01:03→23:17)
[2022-02-03] MEDS: METOCLOPRAMIDE HCL 10MG/2ML VIAL IV SCH ×5 (01:03→23:17)
[2022-02-03 04:50] LABS: BASOPHILS % 0.1 % (0.0-2.0); EOSINOPHILS % 0.2 % (0.0-5.0); HEMATOCRIT. 23.8 % (36.0-48.0); HEMOGLOBIN. 7.8 g/dL (12.0-16.0); LYMPHOCYTES % 12.3 % (20.0-50.0); MEAN CORPUSCULAR VOLUME 82.7 fL (81.0-99.0); MEAN PLATELET VOLUME 8.7 fl (7.4-10.4); NEUTROPHILS % 81.4 % (40.0-76.0); PLATELET 223 x1000/uL (130-400); RED BLOOD CELL COUNT 2.88 mill/uL (4.2-5.4); RED CELL DISTRIBUTION WIDTH 16.5 % (11.6-14.6)
[2022-02-03 05:17] LABS: PHOSPHORUS 3.5 mg/dL (2.5-4.9)
[2022-02-03] MEDS: SODIUM CHLORIDE 0.45% 1,000 ML IV SCH ×2 (07:39→17:31)
[2022-02-03] MEDS: PIPERACILLIN/TAZOBACTAM 3.375 G in DEXTROSE 5% WATER 50 ML IV SCH ×2 (08:43→20:41)
[2022-02-03] MEDS: DOCUSATE SODIUM SUGAR FREE 100MG/10ML UDC NG SCH (08:43)
[2022-02-03] MEDS: PANTOPRAZOLE SODIUM 40 MG/VIAL IV SCH ×2 (08:43→20:41)
[2022-02-03] MEDS: AMLODIPINE 10MG TABLET PO SCH (08:43)
[2022-02-03 09:01] LABS: BG BASE EXCESS 2.5 mmol/L (-2.0-2.0); BG FRACTION INSPIRED OXYGEN 50; BG HCO3 ACT 26.6 mmol/L (22.0-26.0); BG METHEMOGLOBIN 0.6 % (0.0-1.5); BG OXYGEN SATURATION 89.9 % (92.0-98.5); BG OXYHEMOGLOBIN 89.4 % (94.0-97.0); BG PH 7.452 (7.350-7.450); BG PO2 58.1 mmHg (75.0-100.0); BG SAMPLE SITE RIGHT RADIAL; BG TOTAL HEMOGLOBIN 7.3 g/dL (12.0-18.0); BG VENT MODE VENT - AC
[2022-02-03] MEDS: INSULIN GLARGINE 100 UNITS/ML SUBCUT SCH ×2 (10:26→22:00)
[2022-02-03] MEDS: FENTANYL 2500MCG/250ML PMX 250 ML IV PRN (11:44)
[2022-02-03] MEDS: MIDAZOLAM 100MG/100ML PMX 100 ML IV PRN (13:57)
[2022-02-03] MEDS ORDERED: POTASSIUM CHLORIDE INJ 40 MEQ in DEXT 5% WATER 500 ML IV ONE (19:00)
[2022-02-04] VITALS (89 sets, daily range): BP systolic 110–151; BP diastolic 49–112
[2022-02-04] MEDS: IPRATROPIUM/ALBUTEROL 0.5-3(2.5)MG/3ML NEB HHN SCH ×4 (01:14→21:07)
[2022-02-04] MEDS: SODIUM CHLORIDE 0.45% 1,000 ML IV SCH ×3 (03:00→22:48)
[2022-02-04] MEDS: BLOOD SUGAR DIAGNOSTIC STRIP TEST SCH ×4 (05:28→23:24)
[2022-02-04] MEDS: INSULIN LISPRO 100 UNITS/ML SUBCUT SCH ×4 (05:28→23:25)
[2022-02-04] MEDS: METOCLOPRAMIDE HCL 10MG/2ML VIAL IV SCH ×4 (05:28→23:24)
[2022-02-04 05:49] LABS: EOSINOPHILS % 2.9 % (0.0-5.0); HEMATOCRIT. 23.7 % (36.0-48.0); HEMOGLOBIN. 7.7 g/dL (12.0-16.0); LYMPHOCYTES % 18.3 % (20.0-50.0); MEAN CORPUSCULAR HEMOGLOBIN 27.4 pg (28.0-32.0); MEAN CORPUSCULAR VOLUME 84.1 fL (81.0-99.0); MEAN PLATELET VOLUME 8.7 fl (7.4-10.4); MONOCYTES % 4.8 % (2.0-8.0); PLATELET 208 x1000/uL (130-400); RED BLOOD CELL COUNT 2.82 mill/uL (4.2-5.4); RED CELL DISTRIBUTION WIDTH 16.6 % (11.6-14.6)
[2022-02-04 09:07] LABS: BG BASE EXCESS -1.8 mmol/L (-2.0-2.0); BG CARBOXYHEMOGLOBIN 0.3 % (0.5-1.5); BG DEOXYHEMOGLOBIN 1.1 % (0.0-5.0); BG FRACTION INSPIRED OXYGEN 50; BG HCO3 ACT 22.5 mmol/L (22.0-26.0); BG METHEMOGLOBIN 0.3 % (0.0-1.5); BG OXYGEN SATURATION 98.9 % (92.0-98.5); BG OXYHEMOGLOBIN 98.3 % (94.0-97.0); BG PH 7.414 (7.350-7.450); BG PO2 186.5 mmHg (75.0-100.0); BG SAMPLE SITE RIGHT RADIAL; BG TOTAL HEMOGLOBIN 7.9 g/dL (12.0-18.0); BG VENT MODE VENT - AC
[2022-02-04] MEDS: PANTOPRAZOLE SODIUM 40 MG/VIAL IV SCH ×2 (09:38→20:54)
[2022-02-04] MEDS: AMLODIPINE 10MG TABLET PO SCH (09:40)
[2022-02-04] MEDS: DOCUSATE SODIUM SUGAR FREE 100MG/10ML UDC NG SCH (09:50)
[2022-02-04] MEDS ORDERED: LACTULOSE 20G/30ML UDC PO NR (10:30)
[2022-02-04] MEDS: INSULIN GLARGINE 100 UNITS/ML SUBCUT SCH ×2 (11:54→22:00)
[2022-02-04] MEDS ORDERED: NALOXONE HCL 0.4MG/ML VIAL IV PRN (16:15)
[2022-02-05] VITALS (65 sets, daily range): BP systolic 123–176; BP diastolic 52–121
[2022-02-05] MEDS: IPRATROPIUM/ALBUTEROL 0.5-3(2.5)MG/3ML NEB HHN SCH ×4 (01:09→20:28)
[2022-02-05] MEDS: METOCLOPRAMIDE HCL 10MG/2ML VIAL IV SCH ×4 (05:14→23:23)
[2022-02-05] MEDS: INSULIN LISPRO 100 UNITS/ML SUBCUT SCH ×4 (05:14→23:20)
[2022-02-05] MEDS: BLOOD SUGAR DIAGNOSTIC STRIP TEST SCH ×4 (05:14→23:20)
[2022-02-05 05:25] LABS: BASOPHILS % 0.1 % (0.0-2.0); EOSINOPHILS % 2.7 % (0.0-5.0); HEMATOCRIT. 24.5 % (36.0-48.0); LYMPHOCYTES % 15.2 % (20.0-50.0); MEAN CORPUSCULAR HEMOGLOBIN 26.7 pg (28.0-32.0); MEAN CORPUSCULAR VOLUME 81.3 fL (81.0-99.0); MEAN PLATELET VOLUME 8.9 fl (7.4-10.4); MONOCYTES % 4.8 % (2.0-8.0); NEUTROPHILS % 77.2 % (40.0-76.0); PLATELET 200 x1000/uL (130-400); RED BLOOD CELL COUNT 3.01 mill/uL (4.2-5.4); RED CELL DISTRIBUTION WIDTH 16.2 % (11.6-14.6)
[2022-02-05 05:55] LABS: PHOSPHORUS 4.2 mg/dL (2.5-4.9)
[2022-02-05 08:11] LABS: BG CARBOXYHEMOGLOBIN 0.2 % (0.5-1.5); BG DEOXYHEMOGLOBIN 2.4 % (0.0-5.0); BG FRACTION INSPIRED OXYGEN 30; BG HCO3 ACT 23.9 mmol/L (22.0-26.0); BG METHEMOGLOBIN 0.4 % (0.0-1.5); BG OXYGEN SATURATION 97.6 % (92.0-98.5); BG PCO2 35.3 mmHg (35.0-45.0); BG PH 7.448 (7.350-7.450); BG PO2 105.6 mmHg (75.0-100.0); BG SAMPLE SITE RIGHT BRACHIAL; BG TOTAL HEMOGLOBIN 7.9 g/dL (12.0-18.0); BG VENT MODE VENT - AC
[2022-02-05] MEDS: DOCUSATE SODIUM SUGAR FREE 100MG/10ML UDC NG SCH (09:01)
[2022-02-05] MEDS: SODIUM CHLORIDE 0.45% 1,000 ML IV SCH ×2 (09:02→19:42)
[2022-02-05] MEDS: PANTOPRAZOLE SODIUM 40 MG/VIAL IV SCH ×2 (09:02→20:03)
[2022-02-05] MEDS: AMLODIPINE 10MG TABLET PO SCH (09:02)
[2022-02-05] MEDS: INSULIN GLARGINE 100 UNITS/ML SUBCUT SCH ×2 (09:02→22:00)
[2022-02-05] MEDS: CLONIDINE 0.1MG TABLET PO PRN (21:42)
[2022-02-06] VITALS (43 sets, daily range): BP systolic 120–175; BP diastolic 57–109
[2022-02-06] MEDS: IPRATROPIUM/ALBUTEROL 0.5-3(2.5)MG/3ML NEB HHN SCH ×4 (01:13→20:30)
[2022-02-06] MEDS: BLOOD SUGAR DIAGNOSTIC STRIP TEST SCH ×3 (05:04→17:25)
[2022-02-06] MEDS: INSULIN LISPRO 100 UNITS/ML SUBCUT SCH ×3 (05:04→17:25)
[2022-02-06] MEDS: CLONIDINE 0.1MG TABLET PO PRN (05:05)
[2022-02-06] MEDS: METOCLOPRAMIDE HCL 10MG/2ML VIAL IV SCH ×3 (05:05→17:24)
[2022-02-06] MEDS: SODIUM CHLORIDE 0.45% 1,000 ML IV SCH (05:05)
[2022-02-06 05:06] LABS: BASOPHILS % 0.1 % (0.0-2.0); EOSINOPHILS % 1.5 % (0.0-5.0); HEMATOCRIT. 24.2 % (36.0-48.0); LYMPHOCYTES % 8.9 % (20.0-50.0); MEAN CORPUSCULAR HEMOGLOBIN 26.8 pg (28.0-32.0); MEAN CORPUSCULAR VOLUME 81.7 fL (81.0-99.0); MEAN PLATELET VOLUME 9.1 fl (7.4-10.4); MONOCYTES % 4.7 % (2.0-8.0); NEUTROPHILS % 84.8 % (40.0-76.0); PLATELET 203 x1000/uL (130-400); RED BLOOD CELL COUNT 2.96 mill/uL (4.2-5.4); RED CELL DISTRIBUTION WIDTH 15.6 % (11.6-14.6)
[2022-02-06] MEDS: ONDANSETRON HCL 4MG/2ML INJ IV PRN (05:13)
[2022-02-06 05:17] LABS: PHOSPHORUS 4.3 mg/dL (2.5-4.9)
[2022-02-06] MEDS: PANTOPRAZOLE SODIUM 40 MG/VIAL IV SCH ×2 (09:21→21:11)
[2022-02-06] MEDS: DOCUSATE SODIUM SUGAR FREE 100MG/10ML UDC NG SCH (09:21)
[2022-02-06] MEDS: AMLODIPINE 10MG TABLET PO SCH (09:22)
[2022-02-06 10:17] LABS: BG BASE EXCESS -1.1 mmol/L (-2.0-2.0); BG CARBOXYHEMOGLOBIN 0.4 % (0.5-1.5); BG DEOXYHEMOGLOBIN 2.4 % (0.0-5.0); BG FRACTION INSPIRED OXYGEN 30; BG METHEMOGLOBIN 0.3 % (0.0-1.5); BG OXYGEN SATURATION 97.6 % (92.0-98.5); BG OXYHEMOGLOBIN 96.9 % (94.0-97.0); BG PCO2 35.6 mmHg (35.0-45.0); BG PH 7.428 (7.350-7.450); BG PO2 102.5 mmHg (75.0-100.0); BG SAMPLE SITE RIGHT BRACHIAL; BG VENT MODE VENT - SIMV
[2022-02-06] MEDS: DEXTROSE 5% WATER 1,000 ML IV SCH (10:59)
[2022-02-07] VITALS (49 sets, daily range): BP systolic 117–182; BP diastolic 36–89
[2022-02-07] MEDS: METOCLOPRAMIDE HCL 10MG/2ML VIAL IV SCH ×4 (00:28→16:04)
[2022-02-07] MEDS: INSULIN LISPRO 100 UNITS/ML SUBCUT SCH ×4 (00:28→17:20)
[2022-02-07] MEDS: BLOOD SUGAR DIAGNOSTIC STRIP TEST SCH ×4 (00:29→17:21)
[2022-02-07] MEDS: DEXTROSE 5% WATER 1,000 ML IV SCH ×2 (00:29→16:57)
[2022-02-07] MEDS: IPRATROPIUM/ALBUTEROL 0.5-3(2.5)MG/3ML NEB HHN SCH ×3 (02:16→20:26)
[2022-02-07 04:16] LABS: PHOSPHORUS 3.6 mg/dL (2.5-4.9)
[2022-02-07 04:27] LABS: BASOPHILS % 0.1 % (0.0-2.0); EOSINOPHILS % 1.1 % (0.0-5.0); HEMATOCRIT. 22.3 % (36.0-48.0); HEMOGLOBIN. 7.1 g/dL (12.0-16.0); LYMPHOCYTES % 8.7 % (20.0-50.0); MEAN CORPUSCULAR HEMOGLOBIN 26.1 pg (28.0-32.0); MEAN CORPUSCULAR VOLUME 81.9 fL (81.0-99.0); MEAN PLATELET VOLUME 9.2 fl (7.4-10.4); MONOCYTES % 5.4 % (2.0-8.0); NEUTROPHILS % 84.7 % (40.0-76.0); PLATELET 205 x1000/uL (130-400); RED BLOOD CELL COUNT 2.72 mill/uL (4.2-5.4); RED CELL DISTRIBUTION WIDTH 15.7 % (11.6-14.6)
[2022-02-07] MEDS: AMLODIPINE 10MG TABLET PO SCH (09:19)
[2022-02-07] MEDS: DOCUSATE SODIUM SUGAR FREE 100MG/10ML UDC NG SCH (09:20)
[2022-02-07] MEDS: PANTOPRAZOLE SODIUM 40 MG/VIAL IV SCH ×2 (09:20→21:05)
[2022-02-07 09:40] LABS: BG BASE EXCESS -2.7 mmol/L (-2.0-2.0); BG CARBOXYHEMOGLOBIN 0.2 % (0.5-1.5); BG DEOXYHEMOGLOBIN 3.2 % (0.0-5.0); BG FRACTION INSPIRED OXYGEN 30; BG HCO3 ACT 20.9 mmol/L (22.0-26.0); BG METHEMOGLOBIN 0.3 % (0.0-1.5); BG OXYGEN SATURATION 96.8 % (92.0-98.5); BG OXYHEMOGLOBIN 96.3 % (94.0-97.0); BG PCO2 30.9 mmHg (35.0-45.0); BG PH 7.448 (7.350-7.450); BG PO2 89.3 mmHg (75.0-100.0); BG SAMPLE SITE RIGHT BRACHIAL; BG TOTAL HEMOGLOBIN 7.9 g/dL (12.0-18.0); BG VENT MODE VENT - SIMV
[2022-02-07] MEDS: ACETAMINOPHEN 325MG TABLET PO PRN (15:18)
[2022-02-07 21:02] LABS: HEMATOCRIT 21.3 % (36.0-48.0); MEAN CORPUSCULAR HEMOGLOBIN 26.3 pg (28.0-32.0); MEAN CORPUSCULAR VOLUME 82.1 fL (81.0-99.0); PLATELET 203 x1000/uL (130-400); RED BLOOD CELL COUNT 2.59 mill/uL (4.2-5.4); RED CELL DISTRIBUTION WIDTH 15.2 % (11.6-14.6)
[2022-02-07 21:22] LABS: HEMOGLOBIN 6.8 g/dL (12.0-16.0)
[2022-02-08] VITALS (48 sets, daily range): BP systolic 102–165; BP diastolic 39–116
[2022-02-08] MEDS: METOCLOPRAMIDE HCL 10MG/2ML VIAL IV SCH ×4 (00:03→17:54)
[2022-02-08] MEDS: BLOOD SUGAR DIAGNOSTIC STRIP TEST SCH ×4 (00:03→17:54)
[2022-02-08] MEDS: INSULIN LISPRO 100 UNITS/ML SUBCUT SCH ×4 (00:03→17:55)
[2022-02-08] MEDS: IPRATROPIUM/ALBUTEROL 0.5-3(2.5)MG/3ML NEB HHN SCH ×3 (02:19→18:00)
[2022-02-08] MEDS: DEXTROSE 5% WATER 1,000 ML IV SCH ×2 (06:06→16:34)
[2022-02-08] MEDS: ONDANSETRON HCL 4MG/2ML INJ IV PRN (06:06)
[2022-02-08] MEDS: PANTOPRAZOLE SODIUM 40 MG/VIAL IV SCH ×2 (08:49→21:43)
[2022-02-08] MEDS: DOCUSATE SODIUM SUGAR FREE 100MG/10ML UDC NG SCH (08:49)
[2022-02-08] MEDS: AMLODIPINE 10MG TABLET PO SCH (08:49)
[2022-02-08 09:27] LABS: BG BASE EXCESS -1.4 mmol/L (-2.0-2.0); BG CARBOXYHEMOGLOBIN 0.5 % (0.5-1.5); BG DEOXYHEMOGLOBIN 3.9 % (0.0-5.0); BG FRACTION INSPIRED OXYGEN 30; BG HCO3 ACT 22.2 mmol/L (22.0-26.0); BG OXYGEN SATURATION 96.1 % (92.0-98.5); BG OXYHEMOGLOBIN 95.6 % (94.0-97.0); BG PCO2 33.7 mmHg (35.0-45.0); BG PH 7.437 (7.350-7.450); BG PO2 79.3 mmHg (75.0-100.0); BG SAMPLE SITE RIGHT RADIAL; BG TOTAL HEMOGLOBIN 11.6 g/dL (12.0-18.0); BG VENT MODE VENT - CPAP
[2022-02-08 10:32] LABS: HEMATOCRIT. 33.9 % (36.0-48.0); HEMOGLOBIN. 11.3 g/dL (12.0-16.0); MEAN CORPUSCULAR HEMOGLOBIN 27.2 pg (28.0-32.0); MEAN CORPUSCULAR VOLUME 81.4 fL (81.0-99.0); MEAN PLATELET VOLUME 9.2 fl (7.4-10.4); PLATELET 245 x1000/uL (130-400); RED BLOOD CELL COUNT 4.16 mill/uL (4.2-5.4); RED CELL DISTRIBUTION WIDTH 15.1 % (11.6-14.6)
[2022-02-08 14:38] LABS: PLATELET ESTIMATE NORMAL
[2022-02-08] MEDS: ACETAMINOPHEN 325MG TABLET PO PRN (18:44)
[2022-02-09] VITALS (51 sets, daily range): BP systolic 114–183; BP diastolic 26–109
[2022-02-09] MEDS: BLOOD SUGAR DIAGNOSTIC STRIP TEST SCH ×5 (00:51→23:48)
[2022-02-09] MEDS: INSULIN LISPRO 100 UNITS/ML SUBCUT SCH ×5 (00:56→23:50)
[2022-02-09 04:58] LABS: HEMOGLOBIN. 10.8 g/dL (12.0-16.0); MEAN CORPUSCULAR VOLUME 80.6 fL (81.0-99.0); MEAN PLATELET VOLUME 8.8 fl (7.4-10.4); PLATELET 227 x1000/uL (130-400); RED BLOOD CELL COUNT 3.85 mill/uL (4.2-5.4); RED CELL DISTRIBUTION WIDTH 15.4 % (11.6-14.6)
[2022-02-09 05:21] LABS: PHOSPHORUS 2.9 mg/dL (2.5-4.9)
[2022-02-09] MEDS: METOCLOPRAMIDE HCL 10MG/2ML VIAL IV SCH ×5 (05:30→23:48)
[2022-02-09] MEDS: CLONIDINE 0.1MG TABLET PO PRN ×2 (05:31→13:09)
[2022-02-09] MEDS: DOCUSATE SODIUM SUGAR FREE 100MG/10ML UDC NG SCH (08:04)
[2022-02-09] MEDS: AMLODIPINE 10MG TABLET PO SCH (08:05)
[2022-02-09] MEDS: PANTOPRAZOLE SODIUM 40 MG/VIAL IV SCH ×2 (08:05→20:45)
[2022-02-09] MEDS: IPRATROPIUM/ALBUTEROL 0.5-3(2.5)MG/3ML NEB HHN SCH ×3 (08:23→20:33)
[2022-02-09] MEDS ORDERED: POTASSIUM CHLORIDE 20MEQ/PACKET NG NR (09:00)
[2022-02-09] MEDS: DEXT 5%/0.9% NACL 1,000 ML IV SCH (09:32)
[2022-02-09 10:10] LABS: BG BASE EXCESS -1.1 mmol/L (-2.0-2.0); BG DEOXYHEMOGLOBIN 4.4 % (0.0-5.0); BG FRACTION INSPIRED OXYGEN 30; BG HCO3 ACT 22.5 mmol/L (22.0-26.0); BG METHEMOGLOBIN 0.2 % (0.0-1.5); BG OXYGEN SATURATION 95.6 % (92.0-98.5); BG OXYHEMOGLOBIN 95.4 % (94.0-97.0); BG PCO2 33.7 mmHg (35.0-45.0); BG PH 7.443 (7.350-7.450); BG PO2 76.7 mmHg (75.0-100.0); BG SAMPLE SITE LEFT BRACHIAL; BG TOTAL HEMOGLOBIN 10.9 g/dL (12.0-18.0); BG VENT MODE VENT - CPAP
[2022-02-09 11:39] LABS: PLATELET ESTIMATE NORMAL
[2022-02-09] MEDS: ACETAMINOPHEN 325MG TABLET PO PRN (13:14)
[2022-02-09] MEDS ORDERED: RACEPINEPHRINE 2.25% 0.5ML NEB VIAL HHN NR (14:30)
[2022-02-09] MEDS ORDERED: HYDRALAZINE HCL 25MG TABLET PO ONE (18:00)
[2022-02-09] MEDS: HYDRALAZINE HCL 25MG TABLET PO SCH (20:45)
[2022-02-10] VITALS (36 sets, daily range): BP systolic 103–198; BP diastolic 41–126
[2022-02-10] MEDS: IPRATROPIUM/ALBUTEROL 0.5-3(2.5)MG/3ML NEB HHN SCH ×4 (02:40→20:51)
[2022-02-10] MEDS: CLONIDINE 0.1MG TABLET PO PRN (03:42)
[2022-02-10 05:21] LABS: HEMATOCRIT. 32.9 % (36.0-48.0); MEAN CORPUSCULAR HEMOGLOBIN 27.7 pg (28.0-32.0); MEAN CORPUSCULAR VOLUME 82.5 fL (81.0-99.0); MEAN PLATELET VOLUME 8.7 fl (7.4-10.4); PLATELET 259 x1000/uL (130-400); RED BLOOD CELL COUNT 3.98 mill/uL (4.2-5.4); RED CELL DISTRIBUTION WIDTH 15.2 % (11.6-14.6)
[2022-02-10] MEDS: BLOOD SUGAR DIAGNOSTIC STRIP TEST SCH ×4 (05:43→23:27)
[2022-02-10] MEDS: DEXT 5%/0.9% NACL 1,000 ML IV SCH (05:43)
[2022-02-10] MEDS: METOCLOPRAMIDE HCL 10MG/2ML VIAL IV SCH ×4 (05:43→23:25)
[2022-02-10] MEDS: INSULIN LISPRO 100 UNITS/ML SUBCUT SCH ×4 (05:44→23:26)
[2022-02-10 05:45] LABS: PHOSPHORUS 2.4 mg/dL (2.5-4.9)
[2022-02-10 07:57] LABS: PLATELET ESTIMATE NORMAL
[2022-02-10 08:57] LABS: BG BASE EXCESS -3.3 mmol/L (-2.0-2.0); BG CARBOXYHEMOGLOBIN 0.3 % (0.5-1.5); BG DEOXYHEMOGLOBIN 7.6 % (0.0-5.0); BG FRACTION INSPIRED OXYGEN 40; BG HCO3 ACT 20.3 mmol/L (22.0-26.0); BG METHEMOGLOBIN 0.2 % (0.0-1.5); BG OXYGEN SATURATION 92.4 % (92.0-98.5); BG OXYHEMOGLOBIN 91.9 % (94.0-97.0); BG PCO2 31.9 mmHg (35.0-45.0); BG PH 7.422 (7.350-7.450); BG PO2 63.9 mmHg (75.0-100.0); BG SAMPLE SITE LEFT RADIAL; BG TOTAL HEMOGLOBIN 11.4 g/dL (12.0-18.0); BG TOTAL RESPIRATORY RATE 26 b/min; BG VENT MODE MASK - BIPAP
[2022-02-10] MEDS: HYDRALAZINE HCL 25MG TABLET PO SCH ×2 (09:38→21:04)
[2022-02-10] MEDS: DOCUSATE SODIUM SUGAR FREE 100MG/10ML UDC NG SCH (09:39)
[2022-02-10] MEDS: PANTOPRAZOLE SODIUM 40 MG/VIAL IV SCH ×2 (09:39→21:04)
[2022-02-10] MEDS: AMLODIPINE 10MG TABLET PO SCH (09:39)
[2022-02-10] MEDS ORDERED: FUROSEMIDE 40MG TABLET PO NR (10:00)
[2022-02-10] MEDS ORDERED: SODIUM PHOS,M-BASIC-D-BASIC 15 MM in DEXT 5% WATER 245 ML IV ONE (19:15)
[2022-02-10] MEDS: ONDANSETRON HCL 4MG/2ML INJ IV PRN (23:49)
[2022-02-11] VITALS (36 sets, daily range): BP systolic 114–179; BP diastolic 36–118
[2022-02-11] MEDS: IPRATROPIUM/ALBUTEROL 0.5-3(2.5)MG/3ML NEB HHN SCH ×4 (02:19→20:01)
[2022-02-11 05:42] LABS: HEMATOCRIT. 32.1 % (36.0-48.0); HEMOGLOBIN. 10.9 g/dL (12.0-16.0); MEAN CORPUSCULAR HEMOGLOBIN 27.6 pg (28.0-32.0); MEAN CORPUSCULAR VOLUME 81.6 fL (81.0-99.0); MEAN PLATELET VOLUME 8.5 fl (7.4-10.4); PLATELET 286 x1000/uL (130-400); RED BLOOD CELL COUNT 3.94 mill/uL (4.2-5.4); RED CELL DISTRIBUTION WIDTH 15.3 % (11.6-14.6)
[2022-02-11] MEDS: METOCLOPRAMIDE HCL 10MG/2ML VIAL IV SCH ×2 (05:51→12:00)
[2022-02-11] MEDS: BLOOD SUGAR DIAGNOSTIC STRIP TEST SCH ×3 (05:51→23:57)
[2022-02-11] MEDS: ONDANSETRON HCL 4MG/2ML INJ IV PRN ×2 (05:51→21:45)
[2022-02-11] MEDS: INSULIN LISPRO 100 UNITS/ML SUBCUT SCH ×3 (06:01→23:57)
[2022-02-11] MEDS ORDERED: POTASSIUM CHLORIDE 20MEQ/PACKET PO NR (08:30)
[2022-02-11 08:35] LABS: PLATELET ESTIMATE NORMAL
[2022-02-11] MEDS ORDERED: FUROSEMIDE 40MG/4ML VIAL IVP SCH (09:15)
[2022-02-11] MEDS: HYDRALAZINE HCL 25MG TABLET PO SCH ×2 (09:42→21:45)
[2022-02-11] MEDS: PANTOPRAZOLE SODIUM 40 MG/VIAL IV SCH ×2 (09:42→21:45)
[2022-02-11] MEDS: AMLODIPINE 10MG TABLET PO SCH (09:42)
[2022-02-11] MEDS: DOCUSATE SODIUM SUGAR FREE 100MG/10ML UDC NG SCH (09:43)
[2022-02-11 10:01] LABS: BG BASE EXCESS -1.5 mmol/L (-2.0-2.0); BG CARBOXYHEMOGLOBIN 0.1 % (0.5-1.5); BG DEOXYHEMOGLOBIN 5.4 % (0.0-5.0); BG FRACTION INSPIRED OXYGEN 40; BG HCO3 ACT 22.9 mmol/L (22.0-26.0); BG METHEMOGLOBIN 0.3 % (0.0-1.5); BG OXYGEN SATURATION 94.6 % (92.0-98.5); BG OXYHEMOGLOBIN 94.2 % (94.0-97.0); BG PCO2 37.5 mmHg (35.0-45.0); BG PH 7.404 (7.350-7.450); BG PO2 67.3 mmHg (75.0-100.0); BG SAMPLE SITE LEFT RADIAL; BG TOTAL HEMOGLOBIN 12.2 g/dL (12.0-18.0); BG VENT MODE NASAL CANNULA
[2022-02-12] VITALS (37 sets, daily range): BP systolic 114–185; BP diastolic 58–116
[2022-02-12] MEDS: METOCLOPRAMIDE HCL 10MG/2ML VIAL IV SCH ×4 (00:01→18:26)
[2022-02-12] MEDS: IPRATROPIUM/ALBUTEROL 0.5-3(2.5)MG/3ML NEB HHN SCH ×4 (02:03→21:15)
[2022-02-12] MEDS: INSULIN LISPRO 100 UNITS/ML SUBCUT SCH ×3 (05:37→18:00)
[2022-02-12] MEDS: BLOOD SUGAR DIAGNOSTIC STRIP TEST SCH ×3 (05:37→18:25)
[2022-02-12 05:39] LABS: BASOPHILS % 0.3 % (0.0-2.0); EOSINOPHILS % 0.8 % (0.0-5.0); HEMATOCRIT. 32.8 % (36.0-48.0); HEMOGLOBIN. 10.8 g/dL (12.0-16.0); LYMPHOCYTES % 10.7 % (20.0-50.0); MEAN CORPUSCULAR HEMOGLOBIN 27.2 pg (28.0-32.0); MEAN CORPUSCULAR VOLUME 82.7 fL (81.0-99.0); MEAN PLATELET VOLUME 8.2 fl (7.4-10.4); MONOCYTES % 6.8 % (2.0-8.0); NEUTROPHILS % 81.4 % (40.0-76.0); PLATELET 296 x1000/uL (130-400); RED BLOOD CELL COUNT 3.97 mill/uL (4.2-5.4); RED CELL DISTRIBUTION WIDTH 15.8 % (11.6-14.6)
[2022-02-12 06:08] LABS: PHOSPHORUS 3.5 mg/dL (2.5-4.9)
[2022-02-12] MEDS: DOCUSATE SODIUM SUGAR FREE 100MG/10ML UDC NG SCH (08:38)
[2022-02-12] MEDS: PANTOPRAZOLE SODIUM 40 MG/VIAL IV SCH ×2 (08:38→21:35)
[2022-02-12] MEDS: HYDRALAZINE HCL 25MG TABLET PO SCH ×2 (08:39→21:39)
[2022-02-12] MEDS: AMLODIPINE 10MG TABLET PO SCH (08:39)
[2022-02-12 08:54] LABS: BG BASE EXCESS 0.8 mmol/L (-2.0-2.0); BG CARBOXYHEMOGLOBIN 0.3 % (0.5-1.5); BG DEOXYHEMOGLOBIN 2.7 % (0.0-5.0); BG FRACTION INSPIRED OXYGEN 40; BG HCO3 ACT 24.6 mmol/L (22.0-26.0); BG METHEMOGLOBIN 0.1 % (0.0-1.5); BG OXYGEN SATURATION 97.3 % (92.0-98.5); BG OXYHEMOGLOBIN 96.9 % (94.0-97.0); BG PCO2 36.5 mmHg (35.0-45.0); BG PH 7.447 (7.350-7.450); BG PO2 93.4 mmHg (75.0-100.0); BG SAMPLE SITE LEFT BRACHIAL; BG TOTAL HEMOGLOBIN 11.2 g/dL (12.0-18.0); BG TOTAL RESPIRATORY RATE 23 b/min; BG VENT MODE MASK - BIPAP
[2022-02-12] MEDS ORDERED: FUROSEMIDE 40MG/4ML VIAL IVP NR (09:00)
[2022-02-12] MEDS: ACETYLCYSTEINE 200MG/ML 20% VIAL 4ML INH SCH (16:14)
[2022-02-13] VITALS (104 sets, daily range): BP systolic 72–191; BP diastolic 21–116
[2022-02-13] MEDS: BLOOD SUGAR DIAGNOSTIC STRIP TEST SCH ×5 (00:34→23:55)
[2022-02-13] MEDS: ACETYLCYSTEINE 200MG/ML 20% VIAL 4ML INH SCH ×3 (00:45→15:29)
[2022-02-13] MEDS: IPRATROPIUM/ALBUTEROL 0.5-3(2.5)MG/3ML NEB HHN SCH ×4 (00:45→20:55)
[2022-02-13] MEDS: METOCLOPRAMIDE HCL 10MG/2ML VIAL IV SCH ×5 (00:47→23:55)
[2022-02-13] MEDS: CLONIDINE 0.1MG TABLET PO PRN ×3 (00:48→17:59)
[2022-02-13] MEDS: INSULIN LISPRO 100 UNITS/ML SUBCUT SCH ×4 (00:50→23:55)
[2022-02-13 07:33] LABS: BASOPHILS % 0.6 % (0.0-2.0); HEMATOCRIT. 31.7 % (36.0-48.0); HEMOGLOBIN. 10.6 g/dL (12.0-16.0); MEAN CORPUSCULAR HEMOGLOBIN 26.9 pg (28.0-32.0); MEAN CORPUSCULAR VOLUME 80.4 fL (81.0-99.0); MEAN PLATELET VOLUME 7.8 fl (7.4-10.4); MONOCYTES % 5.9 % (2.0-8.0); NEUTROPHILS % 84.5 % (40.0-76.0); PLATELET 297 x1000/uL (130-400); RED BLOOD CELL COUNT 3.94 mill/uL (4.2-5.4); RED CELL DISTRIBUTION WIDTH 15.6 % (11.6-14.6)
[2022-02-13] MEDS: PANTOPRAZOLE SODIUM 40 MG/VIAL IV SCH ×2 (08:13→20:38)
[2022-02-13] MEDS: AMLODIPINE 10MG TABLET PO SCH (08:14)
[2022-02-13] MEDS: HYDRALAZINE HCL 25MG TABLET PO SCH (08:14)
[2022-02-13] MEDS: DOCUSATE SODIUM SUGAR FREE 100MG/10ML UDC NG SCH (08:16)
[2022-02-13] MEDS ORDERED: HYDRALAZINE HCL 25MG TABLET PO NR (09:00)
[2022-02-13] MEDS ORDERED: POTASSIUM CHLORIDE 20MEQ/PACKET PO SCH (10:30)
[2022-02-13] MEDS ORDERED: FUROSEMIDE 40MG/4ML VIAL IVP SCH (10:30)
[2022-02-13] MEDS ORDERED: METOPROLOL TARTRATE 5MG/5ML VIAL IV NR (16:30)
[2022-02-13] MEDS: CEFEPIME 2,000 MG in DEXT 5% WATER 100 ML IV SCH (16:48)
[2022-02-13] MEDS: HYDRALAZINE HCL 50MG TABLET PO SCH (20:38)
[2022-02-14] VITALS (70 sets, daily range): BP systolic 124–191; BP diastolic 35–94
[2022-02-14] MEDS: ACETYLCYSTEINE 200MG/ML 20% VIAL 4ML INH SCH ×3 (02:21→14:44)
[2022-02-14] MEDS: IPRATROPIUM/ALBUTEROL 0.5-3(2.5)MG/3ML NEB HHN SCH ×4 (02:22→20:45)
[2022-02-14 05:12] LABS: BASOPHILS % 0.6 % (0.0-2.0); EOSINOPHILS % 1.5 % (0.0-5.0); HEMATOCRIT. 30.7 % (36.0-48.0); HEMOGLOBIN. 10.5 g/dL (12.0-16.0); LYMPHOCYTES % 10.7 % (20.0-50.0); MEAN CORPUSCULAR HEMOGLOBIN 28.1 pg (28.0-32.0); MEAN CORPUSCULAR VOLUME 82.5 fL (81.0-99.0); MEAN PLATELET VOLUME 7.8 fl (7.4-10.4); MONOCYTES % 7.5 % (2.0-8.0); NEUTROPHILS % 79.7 % (40.0-76.0); PLATELET 276 x1000/uL (130-400); RED BLOOD CELL COUNT 3.72 mill/uL (4.2-5.4); RED CELL DISTRIBUTION WIDTH 15.4 % (11.6-14.6)
[2022-02-14] MEDS: ACETAMINOPHEN 325MG TABLET PO PRN (05:36)
[2022-02-14] MEDS: BLOOD SUGAR DIAGNOSTIC STRIP TEST SCH ×3 (05:36→17:13)
[2022-02-14] MEDS: METOCLOPRAMIDE HCL 10MG/2ML VIAL IV SCH ×3 (05:36→17:13)
[2022-02-14] MEDS: INSULIN LISPRO 100 UNITS/ML SUBCUT SCH ×3 (05:38→17:44)
[2022-02-14 05:41] LABS: PHOSPHORUS 3.4 mg/dL (2.5-4.9)
[2022-02-14] MEDS ORDERED: FUROSEMIDE 40MG/4ML VIAL IVP NR (09:30)
[2022-02-14] MEDS: DOCUSATE SODIUM SUGAR FREE 100MG/10ML UDC NG SCH (09:40)
[2022-02-14] MEDS: PANTOPRAZOLE SODIUM 40 MG/VIAL IV SCH ×2 (09:40→20:34)
[2022-02-14] MEDS: HYDRALAZINE HCL 50MG TABLET PO SCH ×2 (09:41→20:34)
[2022-02-14] MEDS: AMLODIPINE 10MG TABLET PO SCH (09:41)
[2022-02-14] MEDS: CEFEPIME 2,000 MG in DEXT 5% WATER 100 ML IV SCH (15:08)
[2022-02-15] VITALS (27 sets, daily range): BP systolic 101–161; BP diastolic 44–87
[2022-02-15] MEDS: METOCLOPRAMIDE HCL 10MG/2ML VIAL IV SCH ×5 (00:56→23:42)
[2022-02-15] MEDS: BLOOD SUGAR DIAGNOSTIC STRIP TEST SCH ×5 (00:56→23:43)
[2022-02-15] MEDS: INSULIN LISPRO 100 UNITS/ML SUBCUT SCH ×5 (00:57→23:48)
[2022-02-15] MEDS: ACETYLCYSTEINE 200MG/ML 20% VIAL 4ML INH SCH ×3 (01:37→07:33)
[2022-02-15] MEDS: IPRATROPIUM/ALBUTEROL 0.5-3(2.5)MG/3ML NEB HHN SCH ×4 (02:45→20:11)
[2022-02-15 04:40] LABS: BASOPHILS % 0.4 % (0.0-2.0); EOSINOPHILS % 1.2 % (0.0-5.0); HEMATOCRIT. 32.8 % (36.0-48.0); HEMOGLOBIN. 11.1 g/dL (12.0-16.0); MEAN CORPUSCULAR HEMOGLOBIN 28.3 pg (28.0-32.0); MEAN CORPUSCULAR VOLUME 83.5 fL (81.0-99.0); MEAN PLATELET VOLUME 7.7 fl (7.4-10.4); MONOCYTES % 7.8 % (2.0-8.0); NEUTROPHILS % 75.6 % (40.0-76.0); PLATELET 266 x1000/uL (130-400); RED BLOOD CELL COUNT 3.93 mill/uL (4.2-5.4); RED CELL DISTRIBUTION WIDTH 15.7 % (11.6-14.6)
[2022-02-15 04:49] LABS: PHOSPHORUS 3.1 mg/dL (2.5-4.9)
[2022-02-15 08:56] LABS: BG BASE EXCESS 4.2 mmol/L (-2.0-2.0); BG CARBOXYHEMOGLOBIN 0.3 % (0.5-1.5); BG DEOXYHEMOGLOBIN 4.3 % (0.0-5.0); BG FRACTION INSPIRED OXYGEN 32; BG HCO3 ACT 28.2 mmol/L (22.0-26.0); BG METHEMOGLOBIN 0.9 % (0.0-1.5); BG OXYGEN SATURATION 95.6 % (92.0-98.5); BG OXYHEMOGLOBIN 94.5 % (94.0-97.0); BG PCO2 39.9 mmHg (35.0-45.0); BG PH 7.467 (7.350-7.450); BG PO2 83.8 mmHg (75.0-100.0); BG SAMPLE SITE RIGHT RADIAL; BG TOTAL HEMOGLOBIN 11.2 g/dL (12.0-18.0); BG VENT MODE NASAL CANNULA
[2022-02-15] MEDS: DOCUSATE SODIUM SUGAR FREE 100MG/10ML UDC NG SCH (09:00)
[2022-02-15] MEDS: PANTOPRAZOLE SODIUM 40 MG/VIAL IV SCH ×2 (09:13→21:25)
[2022-02-15] MEDS: HYDRALAZINE HCL 50MG TABLET PO SCH ×2 (09:14→21:32)
[2022-02-15] MEDS: AMLODIPINE 10MG TABLET PO SCH (09:15)
[2022-02-15] MEDS ORDERED: POTASSIUM CHLORIDE 20MEQ TABLET SR PO NR (10:30)
[2022-02-15] MEDS: FUROSEMIDE 40MG/4ML VIAL IVP SCH (10:38)
[2022-02-15] MEDS: ACETAMINOPHEN 325MG TABLET PO PRN (14:02)
[2022-02-15] MEDS: CEFEPIME 2,000 MG in DEXT 5% WATER 100 ML IV SCH (15:25)
[2022-02-15] MEDS: CLONIDINE 0.1MG TABLET PO PRN (21:25)
[2022-02-15] MEDS: AMPICILLIN SOD/SULBACTAM NA 3 G in SODIUM CHLORIDE 0.9% 100 ML IV SCH (21:32)
[2022-02-16] VITALS (12 sets, daily range): BP systolic 122–173; BP diastolic 64–82
[2022-02-16] MEDS: IPRATROPIUM/ALBUTEROL 0.5-3(2.5)MG/3ML NEB HHN SCH ×4 (01:37→20:16)
[2022-02-16] MEDS: BLOOD SUGAR DIAGNOSTIC STRIP TEST SCH ×3 (05:44→18:04)
[2022-02-16] MEDS: INSULIN LISPRO 100 UNITS/ML SUBCUT SCH ×3 (05:56→18:10)
[2022-02-16] MEDS: METOCLOPRAMIDE HCL 10MG/2ML VIAL IV SCH ×3 (05:56→18:08)
[2022-02-16] MEDS: AMPICILLIN SOD/SULBACTAM NA 3 G in SODIUM CHLORIDE 0.9% 100 ML IV SCH ×3 (05:56→21:34)
[2022-02-16 06:15] LABS: BASOPHILS % 0.6 % (0.0-2.0); EOSINOPHILS % 1.3 % (0.0-5.0); HEMATOCRIT. 33.2 % (36.0-48.0); HEMOGLOBIN. 11.1 g/dL (12.0-16.0); LYMPHOCYTES % 9.2 % (20.0-50.0); MEAN CORPUSCULAR HEMOGLOBIN 27.8 pg (28.0-32.0); MEAN CORPUSCULAR VOLUME 83.4 fL (81.0-99.0); MEAN PLATELET VOLUME 8.1 fl (7.4-10.4); MONOCYTES % 7.5 % (2.0-8.0); NEUTROPHILS % 81.4 % (40.0-76.0); PLATELET 255 x1000/uL (130-400); RED BLOOD CELL COUNT 3.98 mill/uL (4.2-5.4); RED CELL DISTRIBUTION WIDTH 15.6 % (11.6-14.6)
[2022-02-16 07:16] LABS: PHOSPHORUS 3.2 mg/dL (2.5-4.9)
[2022-02-16] MEDS: ACETYLCYSTEINE 200MG/ML 20% VIAL 4ML INH SCH ×2 (08:41→20:15)
[2022-02-16] MEDS: PANTOPRAZOLE SODIUM 40 MG/VIAL IV SCH ×2 (08:57→21:34)
[2022-02-16] MEDS: FUROSEMIDE 40MG/4ML VIAL IVP SCH (08:57)
[2022-02-16] MEDS: AMLODIPINE 10MG TABLET PO SCH (08:57)
[2022-02-16] MEDS: HYDRALAZINE HCL 50MG TABLET PO SCH (08:58)
[2022-02-16] MEDS: DOCUSATE SODIUM SUGAR FREE 100MG/10ML UDC NG SCH (08:59)
[2022-02-16] MEDS ORDERED: CLONIDINE 0.1MG TABLET PO SCH (13:00)
[2022-02-16] MEDS: CLONIDINE 0.1MG TABLET PO SCH ×2 (21:36→21:37)
[2022-02-16] MEDS: HYDRALAZINE HCL 100MG TABLET PO SCH (21:38)
[2022-02-17] VITALS (11 sets, daily range): BP systolic 122–170; BP diastolic 56–88
[2022-02-17] MEDS: BLOOD SUGAR DIAGNOSTIC STRIP TEST SCH ×5 (00:24→23:17)
[2022-02-17] MEDS: METOCLOPRAMIDE HCL 10MG/2ML VIAL IV SCH ×5 (00:25→23:21)
[2022-02-17] MEDS: INSULIN LISPRO 100 UNITS/ML SUBCUT SCH ×5 (00:34→23:22)
[2022-02-17] MEDS: IPRATROPIUM/ALBUTEROL 0.5-3(2.5)MG/3ML NEB HHN SCH ×4 (02:43→20:00)
[2022-02-17 06:22] LABS: BASOPHILS % 0.6 % (0.0-2.0); EOSINOPHILS % 2.6 % (0.0-5.0); HEMATOCRIT. 29.1 % (36.0-48.0); HEMOGLOBIN. 9.9 g/dL (12.0-16.0); LYMPHOCYTES % 16.4 % (20.0-50.0); MEAN CORPUSCULAR HEMOGLOBIN 28.6 pg (28.0-32.0); MEAN CORPUSCULAR VOLUME 83.9 fL (81.0-99.0); MONOCYTES % 8.9 % (2.0-8.0); NEUTROPHILS % 71.5 % (40.0-76.0); PLATELET 207 x1000/uL (130-400); RED BLOOD CELL COUNT 3.47 mill/uL (4.2-5.4); RED CELL DISTRIBUTION WIDTH 15.7 % (11.6-14.6)
[2022-02-17] MEDS: ACETAMINOPHEN 325MG TABLET PO PRN (06:31)
[2022-02-17] MEDS: AMPICILLIN SOD/SULBACTAM NA 3 G in SODIUM CHLORIDE 0.9% 100 ML IV SCH ×3 (06:32→21:29)
[2022-02-17 06:36] LABS: PHOSPHORUS 3.5 mg/dL (2.5-4.9)
[2022-02-17] MEDS: ACETYLCYSTEINE 200MG/ML 20% VIAL 4ML INH SCH (08:00)
[2022-02-17] MEDS: PANTOPRAZOLE SODIUM 40 MG/VIAL IV SCH ×2 (09:08→21:29)
[2022-02-17] MEDS: DOCUSATE SODIUM SUGAR FREE 100MG/10ML UDC NG SCH (09:08)
[2022-02-17] MEDS: FUROSEMIDE 40MG/4ML VIAL IVP SCH (09:08)
[2022-02-17] MEDS: AMLODIPINE 10MG TABLET PO SCH (09:09)
[2022-02-17] MEDS: HYDRALAZINE HCL 100MG TABLET PO SCH ×2 (09:09→21:30)
[2022-02-17] MEDS ORDERED: FUROSEMIDE 40MG/4ML VIAL IVP NR (13:45)
[2022-02-17] MEDS: CLONIDINE 0.1MG TABLET PO SCH ×2 (13:53→21:30)
[2022-02-18] VITALS (12 sets, daily range): BP systolic 116–158; BP diastolic 52–82
[2022-02-18] MEDS: IPRATROPIUM/ALBUTEROL 0.5-3(2.5)MG/3ML NEB HHN SCH ×4 (01:41→20:29)
[2022-02-18] MEDS: AMPICILLIN SOD/SULBACTAM NA 3 G in SODIUM CHLORIDE 0.9% 100 ML IV SCH ×3 (05:41→22:04)
[2022-02-18] MEDS: METOCLOPRAMIDE HCL 10MG/2ML VIAL IV SCH ×3 (05:41→17:25)
[2022-02-18] MEDS: CLONIDINE 0.1MG TABLET PO SCH ×3 (05:41→22:05)
[2022-02-18] MEDS: INSULIN LISPRO 100 UNITS/ML SUBCUT SCH ×3 (05:42→17:26)
[2022-02-18] MEDS: BLOOD SUGAR DIAGNOSTIC STRIP TEST SCH ×3 (05:43→17:26)
[2022-02-18 06:29] LABS: HEMATOCRIT. 28.3 % (36.0-48.0); HEMOGLOBIN. 9.4 g/dL (12.0-16.0); LYMPHOCYTES % 13.6 % (20.0-50.0); MEAN CORPUSCULAR HEMOGLOBIN 27.7 pg (28.0-32.0); MONOCYTES % 7.2 % (2.0-8.0); NEUTROPHILS % 75.9 % (40.0-76.0); PLATELET 193 x1000/uL (130-400); RED BLOOD CELL COUNT 3.41 mill/uL (4.2-5.4); RED CELL DISTRIBUTION WIDTH 15.5 % (11.6-14.6)
[2022-02-18 06:30] LABS: BASOPHILS % 0.5 % (0.0-2.0); EOSINOPHILS % 2.8 % (0.0-5.0)
[2022-02-18 07:24] LABS: PHOSPHORUS 3.7 mg/dL (2.5-4.9)
[2022-02-18] MEDS: HYDRALAZINE HCL 100MG TABLET PO SCH ×2 (08:15→22:04)
[2022-02-18] MEDS: PANTOPRAZOLE SODIUM 40 MG/VIAL IV SCH (08:15)
[2022-02-18] MEDS: POLYETHYLENE GLYCOL 3350 (17GM) 1 DOSE PACK PO SCH (08:17)
[2022-02-18] MEDS: AMLODIPINE 10MG TABLET PO SCH (08:23)
[2022-02-18] MEDS ORDERED: FUROSEMIDE 40MG/4ML VIAL IVP SCH (09:00)
[2022-02-18] MEDS ORDERED: FUROSEMIDE 20MG/2ML VIAL IVP SCH (09:00)
[2022-02-18] MEDS: PANTOPRAZOLE 40MG DR TABLET PO SCH (22:05)
[2022-02-19] VITALS (12 sets, daily range): BP systolic 85–155; BP diastolic 55–108
[2022-02-19] MEDS: BLOOD SUGAR DIAGNOSTIC STRIP TEST SCH ×4 (00:23→17:36)
[2022-02-19] MEDS: METOCLOPRAMIDE HCL 10MG/2ML VIAL IV SCH ×4 (00:23→17:36)
[2022-02-19] MEDS: INSULIN LISPRO 100 UNITS/ML SUBCUT SCH ×4 (00:33→17:37)
[2022-02-19] MEDS: IPRATROPIUM/ALBUTEROL 0.5-3(2.5)MG/3ML NEB HHN SCH ×4 (00:48→21:08)
[2022-02-19] MEDS: CLONIDINE 0.1MG TABLET PO SCH ×3 (05:21→21:34)
[2022-02-19 06:29] LABS: BASOPHILS % 0.4 % (0.0-2.0); EOSINOPHILS % 1.3 % (0.0-5.0); HEMATOCRIT. 31.9 % (36.0-48.0); HEMOGLOBIN. 10.6 g/dL (12.0-16.0); LYMPHOCYTES % 12.3 % (20.0-50.0); MEAN CORPUSCULAR HEMOGLOBIN 27.4 pg (28.0-32.0); MEAN CORPUSCULAR VOLUME 82.8 fL (81.0-99.0); MEAN PLATELET VOLUME 8.2 fl (7.4-10.4); MONOCYTES % 5.6 % (2.0-8.0); NEUTROPHILS % 80.4 % (40.0-76.0); PLATELET 205 x1000/uL (130-400); RED BLOOD CELL COUNT 3.85 mill/uL (4.2-5.4); RED CELL DISTRIBUTION WIDTH 15.7 % (11.6-14.6)
[2022-02-19 06:35] LABS: PHOSPHORUS 3.7 mg/dL (2.5-4.9)
[2022-02-19 06:52] LABS: BG BASE EXCESS 4.2 mmol/L (-2.0-2.0); BG CARBOXYHEMOGLOBIN 0.3 % (0.5-1.5); BG DEOXYHEMOGLOBIN 14.4 % (0.0-5.0); BG FRACTION INSPIRED OXYGEN 50; BG HCO3 ACT 29.6 mmol/L (22.0-26.0); BG METHEMOGLOBIN 0.2 % (0.0-1.5); BG OXYGEN SATURATION 85.5 % (92.0-98.5); BG OXYHEMOGLOBIN 85.1 % (94.0-97.0); BG PCO2 48.3 mmHg (35.0-45.0); BG PH 7.405 (7.350-7.450); BG PO2 50.5 mmHg (75.0-100.0); BG SAMPLE SITE LEFT RADIAL; BG TOTAL HEMOGLOBIN 10.6 g/dL (12.0-18.0); BG VENT MODE MASK - BIPAP
[2022-02-19] MEDS: POLYETHYLENE GLYCOL 3350 (17GM) 1 DOSE PACK PO SCH (08:34)
[2022-02-19] MEDS: FUROSEMIDE 100MG/10ML VIAL IVP SCH (08:34)
[2022-02-19] MEDS: AMLODIPINE 10MG TABLET PO SCH (08:35)
[2022-02-19] MEDS: HYDRALAZINE HCL 100MG TABLET PO SCH ×2 (08:35→21:34)
[2022-02-19] MEDS: PANTOPRAZOLE 40MG DR TABLET PO SCH ×2 (08:35→21:31)
[2022-02-19] MEDS: AMPICILLIN SOD/SULBACTAM NA 3 G in SODIUM CHLORIDE 0.9% 100 ML IV SCH (08:39)
[2022-02-19] MEDS: MEROPENEM 1,000 MG in SODIUM CHLORIDE 0.9% 100 ML IV SCH (16:46)
[2022-02-20] VITALS (11 sets, daily range): BP systolic 133–155; BP diastolic 68–82
[2022-02-20] MEDS: BLOOD SUGAR DIAGNOSTIC STRIP TEST SCH ×5 (00:43→23:04)
[2022-02-20] MEDS: INSULIN LISPRO 100 UNITS/ML SUBCUT SCH ×5 (00:43→23:13)
[2022-02-20] MEDS: METOCLOPRAMIDE HCL 10MG/2ML VIAL IV SCH ×5 (00:43→23:13)
[2022-02-20] MEDS: IPRATROPIUM/ALBUTEROL 0.5-3(2.5)MG/3ML NEB HHN SCH ×4 (01:14→21:08)
[2022-02-20] MEDS: MEROPENEM 1,000 MG in SODIUM CHLORIDE 0.9% 100 ML IV SCH (05:47)
[2022-02-20] MEDS: CLONIDINE 0.1MG TABLET PO SCH ×3 (05:52→21:25)
[2022-02-20 06:20] LABS: BASOPHILS % 0.3 % (0.0-2.0); EOSINOPHILS % 1.6 % (0.0-5.0); HEMATOCRIT. 27.9 % (36.0-48.0); HEMOGLOBIN. 9.3 g/dL (12.0-16.0); LYMPHOCYTES % 11.5 % (20.0-50.0); MEAN CORPUSCULAR HEMOGLOBIN 27.5 pg (28.0-32.0); MEAN PLATELET VOLUME 8.3 fl (7.4-10.4); MONOCYTES % 7.1 % (2.0-8.0); NEUTROPHILS % 79.5 % (40.0-76.0); PLATELET 177 x1000/uL (130-400); RED CELL DISTRIBUTION WIDTH 15.5 % (11.6-14.6)
[2022-02-20 07:08] LABS: PHOSPHORUS 4.3 mg/dL (2.5-4.9)
[2022-02-20] MEDS: PANTOPRAZOLE 40MG DR TABLET PO SCH ×2 (08:07→21:24)
[2022-02-20] MEDS: POLYETHYLENE GLYCOL 3350 (17GM) 1 DOSE PACK PO SCH (08:07)
[2022-02-20] MEDS: FUROSEMIDE 100MG/10ML VIAL IVP SCH ×3 (08:08→21:24)
[2022-02-20] MEDS: AMLODIPINE 10MG TABLET PO SCH (08:08)
[2022-02-20] MEDS: HYDRALAZINE HCL 100MG TABLET PO SCH ×2 (08:08→21:25)
[2022-02-20 09:47] LABS: BG BASE EXCESS 5.4 mmol/L (-2.0-2.0); BG CARBOXYHEMOGLOBIN 0.3 % (0.5-1.5); BG DEOXYHEMOGLOBIN 0.9 % (0.0-5.0); BG FRACTION INSPIRED OXYGEN 70; BG HCO3 ACT 30.9 mmol/L (22.0-26.0); BG METHEMOGLOBIN 0.3 % (0.0-1.5); BG OXYGEN SATURATION 99.1 % (92.0-98.5); BG OXYHEMOGLOBIN 98.5 % (94.0-97.0); BG PCO2 49.7 mmHg (35.0-45.0); BG PH 7.411 (7.350-7.450); BG PO2 187.9 mmHg (75.0-100.0); BG SAMPLE SITE LEFT BRACHIAL; BG TOTAL HEMOGLOBIN 9.8 g/dL (12.0-18.0); BG TOTAL RESPIRATORY RATE 16 b/min; BG VENT MODE MASK - BIPAP
[2022-02-20] MEDS ORDERED: BISACODYL 10MG SUPP PR PRN (18:15)
[2022-02-20] MEDS: MEROPENEM 500MG in NORMAL SALINE 50ML IV SCH (21:24)
[2022-02-20] MEDS: ONDANSETRON HCL 4MG/2ML INJ IV PRN (22:24)
[2022-02-21] VITALS (12 sets, daily range): BP systolic 123–148; BP diastolic 48–76
[2022-02-21] MEDS: IPRATROPIUM/ALBUTEROL 0.5-3(2.5)MG/3ML NEB HHN SCH ×4 (00:44→20:13)
[2022-02-21] MEDS: BLOOD SUGAR DIAGNOSTIC STRIP TEST SCH ×4 (05:07→23:18)
[2022-02-21] MEDS: CLONIDINE 0.1MG TABLET PO SCH ×3 (05:08→21:17)
[2022-02-21] MEDS: METOCLOPRAMIDE HCL 10MG/2ML VIAL IV SCH ×4 (05:08→23:33)
[2022-02-21] MEDS: FUROSEMIDE 100MG/10ML VIAL IVP SCH ×3 (05:08→21:16)
[2022-02-21] MEDS: INSULIN LISPRO 100 UNITS/ML SUBCUT SCH ×4 (05:08→23:33)
[2022-02-21 06:15] LABS: BASOPHILS % 0.4 % (0.0-2.0); EOSINOPHILS % 1.9 % (0.0-5.0); HEMATOCRIT. 26.7 % (36.0-48.0); LYMPHOCYTES % 14.7 % (20.0-50.0); MEAN CORPUSCULAR HEMOGLOBIN 27.7 pg (28.0-32.0); MEAN CORPUSCULAR VOLUME 82.1 fL (81.0-99.0); MEAN PLATELET VOLUME 8.3 fl (7.4-10.4); MONOCYTES % 8.3 % (2.0-8.0); NEUTROPHILS % 74.7 % (40.0-76.0); PLATELET 179 x1000/uL (130-400); RED BLOOD CELL COUNT 3.25 mill/uL (4.2-5.4); RED CELL DISTRIBUTION WIDTH 15.5 % (11.6-14.6)
[2022-02-21 06:28] LABS: PHOSPHORUS 4.2 mg/dL (2.5-4.9)
[2022-02-21] MEDS: HYDRALAZINE HCL 100MG TABLET PO SCH ×2 (08:58→21:17)
[2022-02-21] MEDS: MEROPENEM 500MG in NORMAL SALINE 50ML IV SCH ×2 (08:59→21:17)
[2022-02-21] MEDS: PANTOPRAZOLE 40MG DR TABLET PO SCH ×2 (08:59→21:17)
[2022-02-21] MEDS: POLYETHYLENE GLYCOL 3350 (17GM) 1 DOSE PACK PO SCH (08:59)
[2022-02-21] MEDS: AMLODIPINE 10MG TABLET PO SCH (09:17)
[2022-02-21] MEDS: ONDANSETRON HCL 4MG/2ML INJ IV PRN (21:16)
[2022-02-22] VITALS (12 sets, daily range): BP systolic 118–162; BP diastolic 49–80
[2022-02-22] MEDS: IPRATROPIUM/ALBUTEROL 0.5-3(2.5)MG/3ML NEB HHN SCH ×4 (00:46→20:58)
[2022-02-22] MEDS: INSULIN LISPRO 100 UNITS/ML SUBCUT SCH ×3 (05:01→20:42)
[2022-02-22] MEDS: BLOOD SUGAR DIAGNOSTIC STRIP TEST SCH ×2 (05:02→20:42)
[2022-02-22] MEDS: METOCLOPRAMIDE HCL 10MG/2ML VIAL IV SCH ×4 (05:30→23:55)
[2022-02-22] MEDS: FUROSEMIDE 100MG/10ML VIAL IVP SCH ×3 (05:30→21:05)
[2022-02-22] MEDS: CLONIDINE 0.1MG TABLET PO SCH ×3 (05:30→21:05)
[2022-02-22 06:40] LABS: BASOPHILS % 0.4 % (0.0-2.0); EOSINOPHILS % 1.7 % (0.0-5.0); HEMATOCRIT. 29.2 % (36.0-48.0); HEMOGLOBIN. 9.8 g/dL (12.0-16.0); LYMPHOCYTES % 15.4 % (20.0-50.0); MEAN CORPUSCULAR HEMOGLOBIN 27.6 pg (28.0-32.0); MEAN CORPUSCULAR VOLUME 81.9 fL (81.0-99.0); MEAN PLATELET VOLUME 8.5 fl (7.4-10.4); MONOCYTES % 9.2 % (2.0-8.0); NEUTROPHILS % 73.3 % (40.0-76.0); PLATELET 221 x1000/uL (130-400); RED BLOOD CELL COUNT 3.57 mill/uL (4.2-5.4); RED CELL DISTRIBUTION WIDTH 15.1 % (11.6-14.6)
[2022-02-22 07:21] LABS: PHOSPHORUS 3.9 mg/dL (2.5-4.9)
[2022-02-22] MEDS: POLYETHYLENE GLYCOL 3350 (17GM) 1 DOSE PACK PO SCH (08:54)
[2022-02-22] MEDS: MEROPENEM 500MG in NORMAL SALINE 50ML IV SCH ×2 (08:54→20:38)
[2022-02-22] MEDS: PANTOPRAZOLE 40MG DR TABLET PO SCH ×2 (08:55→20:43)
[2022-02-22] MEDS: HYDRALAZINE HCL 100MG TABLET PO SCH ×2 (08:59→20:43)
[2022-02-22] MEDS: AMLODIPINE 10MG TABLET PO SCH (09:00)
[2022-02-22 09:32] LABS: BG BASE EXCESS 9.8 mmol/L (-2.0-2.0); BG CARBOXYHEMOGLOBIN 0.2 % (0.5-1.5); BG DEOXYHEMOGLOBIN 1.2 % (0.0-5.0); BG FRACTION INSPIRED OXYGEN 44; BG HCO3 ACT 34.4 mmol/L (22.0-26.0); BG METHEMOGLOBIN 0.2 % (0.0-1.5); BG OXYGEN SATURATION 98.8 % (92.0-98.5); BG OXYHEMOGLOBIN 98.4 % (94.0-97.0); BG PCO2 47.4 mmHg (35.0-45.0); BG PH 7.479 (7.350-7.450); BG PO2 158.5 mmHg (75.0-100.0); BG SAMPLE SITE LEFT RADIAL; BG TOTAL HEMOGLOBIN 10.4 g/dL (12.0-18.0); BG VENT MODE NASAL CANNULA
[2022-02-22] MEDS ORDERED: DEXTROSE 50% WATER 50ML SYRINGE IV PRN (18:15)
[2022-02-23] VITALS (12 sets, daily range): BP systolic 112–156; BP diastolic 30–70
[2022-02-23] MEDS: IPRATROPIUM/ALBUTEROL 0.5-3(2.5)MG/3ML NEB HHN SCH ×4 (00:58→20:32)
[2022-02-23] MEDS: METOCLOPRAMIDE HCL 10MG/2ML VIAL IV SCH ×4 (05:34→23:56)
[2022-02-23] MEDS: CLONIDINE 0.1MG TABLET PO SCH ×3 (05:34→21:59)
[2022-02-23] MEDS: FUROSEMIDE 100MG/10ML VIAL IVP SCH ×2 (05:35→17:31)
[2022-02-23 06:20] LABS: PHOSPHORUS 3.6 mg/dL (2.5-4.9)
[2022-02-23 06:30] LABS: BASOPHILS % 0.3 % (0.0-2.0); EOSINOPHILS % 0.5 % (0.0-5.0); HEMATOCRIT. 27.7 % (36.0-48.0); HEMOGLOBIN. 9.3 g/dL (12.0-16.0); LYMPHOCYTES % 11.8 % (20.0-50.0); MEAN CORPUSCULAR HEMOGLOBIN 27.4 pg (28.0-32.0); MEAN CORPUSCULAR VOLUME 81.6 fL (81.0-99.0); MEAN PLATELET VOLUME 8.6 fl (7.4-10.4); MONOCYTES % 7.9 % (2.0-8.0); NEUTROPHILS % 79.5 % (40.0-76.0); PLATELET 208 x1000/uL (130-400); RED BLOOD CELL COUNT 3.39 mill/uL (4.2-5.4); RED CELL DISTRIBUTION WIDTH 15.6 % (11.6-14.6)
[2022-02-23] MEDS: BLOOD SUGAR DIAGNOSTIC STRIP TEST SCH ×4 (07:30→21:00)
[2022-02-23] MEDS: INSULIN LISPRO 100 UNITS/ML SUBCUT SCH ×4 (09:05→22:00)
[2022-02-23] MEDS: MEROPENEM 500MG in NORMAL SALINE 50ML IV SCH ×2 (09:06→21:57)
[2022-02-23] MEDS: PANTOPRAZOLE 40MG DR TABLET PO SCH ×2 (09:08→21:57)
[2022-02-23] MEDS: POLYETHYLENE GLYCOL 3350 (17GM) 1 DOSE PACK PO SCH (09:08)
[2022-02-23] MEDS: AMLODIPINE 10MG TABLET PO SCH (09:08)
[2022-02-23] MEDS: HYDRALAZINE HCL 100MG TABLET PO SCH ×2 (09:08→22:00)
[2022-02-23] MEDS ORDERED: IPRATROPIUM/ALBUTEROL 0.5-3(2.5)MG/3ML NEB HHN PRN (21:15)
[2022-02-24] VITALS (13 sets, daily range): BP systolic 101–133; BP diastolic 35–78
[2022-02-24] MEDS: IPRATROPIUM/ALBUTEROL 0.5-3(2.5)MG/3ML NEB HHN SCH ×4 (01:38→20:43)
[2022-02-24] MEDS: METOCLOPRAMIDE HCL 10MG/2ML VIAL IV SCH ×4 (05:55→23:55)
[2022-02-24] MEDS: FUROSEMIDE 100MG/10ML VIAL IVP SCH (05:56)
[2022-02-24] MEDS: CLONIDINE 0.1MG TABLET PO SCH ×3 (06:00→21:33)
[2022-02-24 06:19] LABS: BASOPHILS % 0.5 % (0.0-2.0); EOSINOPHILS % 1.6 % (0.0-5.0); HEMATOCRIT. 26.9 % (36.0-48.0); LYMPHOCYTES % 18.4 % (20.0-50.0); MEAN CORPUSCULAR HEMOGLOBIN 27.4 pg (28.0-32.0); MEAN CORPUSCULAR VOLUME 81.8 fL (81.0-99.0); MEAN PLATELET VOLUME 8.4 fl (7.4-10.4); MONOCYTES % 9.6 % (2.0-8.0); NEUTROPHILS % 69.9 % (40.0-76.0); PLATELET 209 x1000/uL (130-400); RED BLOOD CELL COUNT 3.28 mill/uL (4.2-5.4)
[2022-02-24 06:23] LABS: PHOSPHORUS 3.2 mg/dL (2.5-4.9)
[2022-02-24] MEDS: BLOOD SUGAR DIAGNOSTIC STRIP TEST SCH ×4 (07:29→21:33)
[2022-02-24] MEDS: MEROPENEM 500MG in NORMAL SALINE 50ML IV SCH ×2 (08:21→21:37)
[2022-02-24] MEDS: HYDRALAZINE HCL 100MG TABLET PO SCH ×2 (08:21→21:00)
[2022-02-24] MEDS: AMLODIPINE 10MG TABLET PO SCH (08:22)
[2022-02-24] MEDS: POLYETHYLENE GLYCOL 3350 (17GM) 1 DOSE PACK PO SCH (08:22)
[2022-02-24] MEDS: PANTOPRAZOLE 40MG DR TABLET PO SCH ×2 (08:22→21:37)
[2022-02-24] MEDS: INSULIN LISPRO 100 UNITS/ML SUBCUT SCH ×4 (08:26→21:58)
[2022-02-25] VITALS (11 sets, daily range): BP systolic 94–145; BP diastolic 42–63
[2022-02-25] MEDS: IPRATROPIUM/ALBUTEROL 0.5-3(2.5)MG/3ML NEB HHN SCH ×4 (02:44→20:32)
[2022-02-25] MEDS: METOCLOPRAMIDE HCL 10MG/2ML VIAL IV SCH ×3 (05:59→18:01)
[2022-02-25] MEDS: CLONIDINE 0.1MG TABLET PO SCH ×3 (05:59→21:39)
[2022-02-25 07:06] LABS: BASOPHILS % 0.5 % (0.0-2.0); HEMATOCRIT. 26.2 % (36.0-48.0); HEMOGLOBIN. 8.9 g/dL (12.0-16.0); LYMPHOCYTES % 19.5 % (20.0-50.0); MEAN CORPUSCULAR HEMOGLOBIN 27.7 pg (28.0-32.0); MEAN CORPUSCULAR VOLUME 81.7 fL (81.0-99.0); MEAN PLATELET VOLUME 8.4 fl (7.4-10.4); PLATELET 208 x1000/uL (130-400); RED BLOOD CELL COUNT 3.21 mill/uL (4.2-5.4); RED CELL DISTRIBUTION WIDTH 15.2 % (11.6-14.6)
[2022-02-25 07:33] LABS: PHOSPHORUS 3.1 mg/dL (2.5-4.9)
[2022-02-25] MEDS: BLOOD SUGAR DIAGNOSTIC STRIP TEST SCH ×4 (08:00→21:39)
[2022-02-25] MEDS: INSULIN LISPRO 100 UNITS/ML SUBCUT SCH ×4 (08:03→21:59)
[2022-02-25] MEDS: FUROSEMIDE 40MG TABLET PO SCH (08:29)
[2022-02-25] MEDS: PANTOPRAZOLE 40MG DR TABLET PO SCH ×2 (08:29→21:36)
[2022-02-25] MEDS: POLYETHYLENE GLYCOL 3350 (17GM) 1 DOSE PACK PO SCH (08:29)
[2022-02-25] MEDS: HYDRALAZINE HCL 100MG TABLET PO SCH ×2 (08:30→21:00)
[2022-02-25] MEDS ORDERED: FUROSEMIDE 100MG/10ML VIAL IVP SCH (09:00)
[2022-02-25 11:25] LABS: BG BASE EXCESS 13.4 mmol/L (-2.0-2.0); BG DEOXYHEMOGLOBIN 9.2 % (0.0-5.0); BG HCO3 ACT 37.7 mmol/L (22.0-26.0); BG METHEMOGLOBIN 0.1 % (0.0-1.5); BG OXYGEN SATURATION 90.8 % (92.0-98.5); BG OXYHEMOGLOBIN 90.7 % (94.0-97.0); BG PCO2 46.9 mmHg (35.0-45.0); BG PH 7.523 (7.350-7.450); BG PO2 60.3 mmHg (75.0-100.0); BG SAMPLE SITE RIGHT BRACHIAL; BG TOTAL HEMOGLOBIN 10.1 g/dL (12.0-18.0); BG VENT MODE ROOM AIR
[2022-02-26] VITALS (11 sets, daily range): BP systolic 104–160; BP diastolic 45–65
[2022-02-26] MEDS: METOCLOPRAMIDE HCL 10MG/2ML VIAL IV SCH ×3 (00:15→14:05)
[2022-02-26] MEDS: IPRATROPIUM/ALBUTEROL 0.5-3(2.5)MG/3ML NEB HHN SCH ×3 (02:05→15:34)
[2022-02-26] MEDS: CLONIDINE 0.1MG TABLET PO SCH ×2 (06:00→14:05)
[2022-02-26 06:45] LABS: BASOPHILS % 0.8 % (0.0-2.0); EOSINOPHILS % 2.1 % (0.0-5.0); HEMATOCRIT. 27.8 % (36.0-48.0); HEMOGLOBIN. 9.2 g/dL (12.0-16.0); LYMPHOCYTES % 21.9 % (20.0-50.0); MEAN CORPUSCULAR HEMOGLOBIN 27.1 pg (28.0-32.0); MEAN CORPUSCULAR VOLUME 81.6 fL (81.0-99.0); MEAN PLATELET VOLUME 8.4 fl (7.4-10.4); MONOCYTES % 9.1 % (2.0-8.0); NEUTROPHILS % 66.1 % (40.0-76.0); PLATELET 226 x1000/uL (130-400); RED CELL DISTRIBUTION WIDTH 15.3 % (11.6-14.6)
[2022-02-26] MEDS: BLOOD SUGAR DIAGNOSTIC STRIP TEST SCH ×2 (07:12→12:30)
[2022-02-26 07:24] LABS: PHOSPHORUS 2.9 mg/dL (2.5-4.9)
[2022-02-26] MEDS: FUROSEMIDE 40MG TABLET PO SCH (09:18)
[2022-02-26] MEDS: PANTOPRAZOLE 40MG DR TABLET PO SCH (09:18)
[2022-02-26] MEDS: POLYETHYLENE GLYCOL 3350 (17GM) 1 DOSE PACK PO SCH (09:19)
[2022-02-26] MEDS: HYDRALAZINE HCL 100MG TABLET PO SCH (09:19)
[2022-02-26] MEDS: INSULIN LISPRO 100 UNITS/ML SUBCUT SCH ×2 (09:22→14:06)
[2022-02-26] MEDS ORDERED: HYDR100T26 PO (11:41)
[2022-02-26] MEDS ORDERED: FURO40TA5 PO (11:41)
[2022-02-26 13:31] LABS: BG BASE EXCESS 12.8 mmol/L (-2.0-2.0); BG CARBOXYHEMOGLOBIN 0.9 % (0.5-1.5); BG FRACTION INSPIRED OXYGEN 21; BG HCO3 ACT 36.8 mmol/L (22.0-26.0); BG METHEMOGLOBIN 0.1 % (0.0-1.5); BG OXYGEN SATURATION 90.9 % (92.0-98.5); BG PCO2 45.1 mmHg (35.0-45.0); BG PO2 56.2 mmHg (75.0-100.0); BG SAMPLE SITE LEFT RADIAL; BG TOTAL HEMOGLOBIN 10.1 g/dL (12.0-18.0); BG VENT MODE ROOM AIR
== END 2022-02-26 17:20 | disposition home or self-care (01) | DRG 870 ==
LOC: ER 05:55 → 7EST 07:50 → EDBEDREQTM 07:56 → EDBEDREQ 07:56 → ENRESERV 08:41 → CVICU 01-26 05:45 → MICUSO 02-02 19:00 → MICUNO 02-09 19:45 → 5EST 02-15 11:30
PROVIDERS: ADMIT Internal Medicine; ATTEND Internal Medicine
PROC: 02HV33Z Insertion of Infusion Device into Superior Vena Cava, Percutaneous Approach (ICD-10-PCS; 2022-01-26)
PROC: B548ZZA Ultrasonography of Superior Vena Cava, Guidance (ICD-10-PCS; 2022-01-26)
PROC: 30233N1 Transfusion of Nonautologous Red Blood Cells into Peripheral Vein, Percutaneous Approach (ICD-10-PCS; 2022-01-26)
PROC: 0BH17EZ Insertion of Endotracheal Airway into Trachea, Via Natural or Artificial Opening (ICD-10-PCS; 2022-01-26)
PROC: 5A1945Z Respiratory Ventilation, 24-96 Consecutive Hours (ICD-10-PCS; 2022-01-26)
PROC: 5A12012 Performance of Cardiac Output, Single, Manual (ICD-10-PCS; 2022-01-26)
PROC: 0W993ZZ Drainage of Right Pleural Cavity, Percutaneous Approach (ICD-10-PCS; 2022-01-28)
PROC: 5A09357 Assistance with Respiratory Ventilation, Less than 24 Consecutive Hours, Continuous Positive Airway Pressure (ICD-10-PCS; 2022-01-29)
PROC: 5A1955Z Respiratory Ventilation, Greater than 96 Consecutive Hours (ICD-10-PCS; principal; 2022-01-30)
PROC: 0BH17EZ Insertion of Endotracheal Airway into Trachea, Via Natural or Artificial Opening (ICD-10-PCS; 2022-01-30)
PROC: 5A09357 Assistance with Respiratory Ventilation, Less than 24 Consecutive Hours, Continuous Positive Airway Pressure (ICD-10-PCS; 2022-02-09)
PROC: 5A09357 Assistance with Respiratory Ventilation, Less than 24 Consecutive Hours, Continuous Positive Airway Pressure (ICD-10-PCS; 2022-02-10)
PROC: 5A09357 Assistance with Respiratory Ventilation, Less than 24 Consecutive Hours, Continuous Positive Airway Pressure (ICD-10-PCS; 2022-02-11)
PROC: 5A0935A Assistance with Respiratory Ventilation, Less than 24 Consecutive Hours, High Flow/Velocity Cannula (ICD-10-PCS; 2022-02-11)
PROC: 5A0945A Assistance with Respiratory Ventilation, 24-96 Consecutive Hours, High Flow/Velocity Cannula (ICD-10-PCS; 2022-02-12)
PROC: 5A09357 Assistance with Respiratory Ventilation, Less than 24 Consecutive Hours, Continuous Positive Airway Pressure (ICD-10-PCS; 2022-02-17)
PROC: 5A09357 Assistance with Respiratory Ventilation, Less than 24 Consecutive Hours, Continuous Positive Airway Pressure (ICD-10-PCS; 2022-02-18)
PROC: 5A09357 Assistance with Respiratory Ventilation, Less than 24 Consecutive Hours, Continuous Positive Airway Pressure (ICD-10-PCS; 2022-02-19)
PROC: 5A09457 Assistance with Respiratory Ventilation, 24-96 Consecutive Hours, Continuous Positive Airway Pressure (ICD-10-PCS; 2022-02-20)
PROC: 5A09357 Assistance with Respiratory Ventilation, Less than 24 Consecutive Hours, Continuous Positive Airway Pressure (ICD-10-PCS; 2022-02-21)
DX: A41.51 Sepsis due to Escherichia coli [E. coli] (principal); I46.9 Cardiac arrest, cause unspecified; N17.0 Acute kidney failure with tubular necrosis; J69.0 Pneumonitis due to inhalation of food and vomit; G82.50 Quadriplegia, unspecified; J80 Acute respiratory distress syndrome; E44.1 Mild protein-calorie malnutrition; K92.2 Gastrointestinal hemorrhage, unspecified; N12 Tubulo-interstitial nephritis, not specified as acute or chronic; E87.1 Hypo-osmolality and hyponatremia; G62.81 Critical illness polyneuropathy; I13.0 Hypertensive heart and chronic kidney disease with heart failure and stage 1 through stage 4 chronic kidney disease, or unspecified chronic kidney disease; E87.0 Hyperosmolality and hypernatremia; R65.20 Severe sepsis without septic shock; A41.81 Sepsis due to Enterococcus; D50.9 Iron deficiency anemia, unspecified; B96.89 Other specified bacterial agents as the cause of diseases classified elsewhere; E78.5 Hyperlipidemia, unspecified; E66.9 Obesity, unspecified; I27.20 Pulmonary hypertension, unspecified; E11.65 Type 2 diabetes mellitus with hyperglycemia; E11.22 Type 2 diabetes mellitus with diabetic chronic kidney disease; E11.69 Type 2 diabetes mellitus with other specified complication; E87.6 Hypokalemia; I50.9 Heart failure, unspecified; E11.51 Type 2 diabetes mellitus with diabetic peripheral angiopathy without gangrene; R26.9 Unspecified abnormalities of gait and mobility; R53.81 Other malaise; N18.30 Chronic kidney disease, stage 3 unspecified; I34.0 Nonrheumatic mitral (valve) insufficiency; R13.12 Dysphagia, oropharyngeal phase; Z20.822 Contact with and (suspected) exposure to COVID-19; Z79.82 Long term (current) use of aspirin; Z82.49 Family history of ischemic heart disease and other diseases of the circulatory system; Z86.73 Personal history of transient ischemic attack (TIA), and cerebral infarction without residual deficits; Z87.891 Personal history of nicotine dependence; Z89.511 Acquired absence of right leg below knee; Z89.512 Acquired absence of left leg below knee; Z79.84 Long term (current) use of oral hypoglycemic drugs; Z79.899 Other long term (current) drug therapy; Z68.35 Body mass index [BMI] 35.0-35.9, adult; J40 Bronchitis, not specified as acute or chronic
CPT/HCPCS: 31500; 32555; 36415; 36600; 71045; 74018; 74176; 76604; 76770; 76937; 78580; 80048; 80053; 81003; 82040; 82043; 82270; 82375; 82550; 82570; 82607; 82728; 82746; 82805; 82962; 83036; 83540; 83550; 83615; 83735; 83880; 83935; 84100; 84145; 84300; 84478; 84484; 85014; 85018; 85025; 85027; 85044; 86850; 86900; 86920; 87070; 87077; 87186; 87426; 88108; 88312; 92610; 92950; 93005; 93306; 93970; 93971; 94002; 94003; 94640; 94644; 94660; 97110; 97116; 97162; 97166; 97530; 97535; 99291; C1725; C1893; C9113; J0295; J0330; J0692; J0696; J1815; J1940; J2185; J2250; J2270; J2405; J2543; J2704; J2765; J2920; J2930; J3010; J3475; J3490; J7030; J7042; J7050; J7060; J7070; J7608; P9016; A4315

== ENCOUNTER 2024-05-29 13:14 | Inpatient (IN) | payer MEDICARE, MEDICAID ==
[~2024-05-29] VITALS: Ht 152.4 cm; Wt 60.5 kg
[2024-05-29] MEDS: VANCOMYCIN 500MG/100ML IV SCH (02:00)
[~2024-05-29 13:14] MED LIST: AMLO10TA80 PO; ASPI-1497 PO; FURO40TA5 PO; GLIM2TAB30 PO; METF-874 PO
[2024-05-29] MEDS: SODIUM CHLORIDE 0.9% 1,000 ML IV ONE (14:55)
[2024-05-29] MEDS: CEFTRIAXONE 1GM/50ML 50 ML IV ONE (14:55)
[2024-05-29 15:00] LABS: DIFFERENTIAL COMMENT 0; RED CELL DISTRIBUTION WIDTH 13.3 % (11.6-14.6)
[2024-05-29 15:04] LABS: CHLORIDE 97 mEq/L (98-107); POTASSIUM 4.3 mEq/L (3.5-5.1); SODIUM 136 mEq/L (136-145)
[2024-05-29 15:05] LABS: CARBON DIOXIDE 28 mEq/L (21-32)
[2024-05-29 15:07] LABS: BASOPHILS % 0.4 % (0.0-2.0); LYMPHOCYTES % 8.9 % (20.0-50.0); MEAN CORPUSCULAR HEMOGLOBIN 26.5 pg (28.0-32.0); MEAN CORPUSCULAR HGB CONC 32.2 g/dL (31.0-37.0); MEAN CORPUSCULAR VOLUME 82.2 fL (81.0-99.0); MEAN PLATELET VOLUME 8.7 fl (7.4-10.4); MONOCYTES % 4.6 % (2.0-8.0); NEUTROPHILS % 86.1 % (40.0-76.0); PLATELET 270 x1000/uL (130-400); RED BLOOD CELL COUNT 2.36 mill/uL (4.2-5.4); WHITE BLOOD COUNT 14.4 x1000/uL (4.5-11.0)
[2024-05-29 15:10] LABS: GLUCOSE 207 mg/dL (70-105); UREA NITROGEN BLOOD 94 mg/dL (9-23)
[2024-05-29 15:11] LABS: INR 1.1; PROTHROMBIN TIME 12.4 sec (9.6-11.0)
[2024-05-29 15:12] LABS: ALANINE AMINOTRANSFERASE 131 IU/L (10-49); ALBUMIN 4.5 g/dL (3.2-4.8); ASPARTATE AMINOTRANSFERASE 146 IU/L (<34); BILIRUBIN DIRECT 0.1 mg/dL (<=3.0)
[2024-05-29 15:13] LABS: BILIRUBIN TOTAL 0.3 mg/dL (0.1-1.0); LACTIC ACID 2.5 mmol/L (0.4-2.0); PROTEIN TOTAL 7.4 g/dL (6.0-8.3)
[2024-05-29 15:14] LABS: HEMOGLOBIN. 6.3 g/dL (12.0-16.0)
[2024-05-29 15:15] LABS: HEMATOCRIT. 19.4 % (36.0-48.0)
[2024-05-29 15:24] LABS: CREATININE 4.2 mg/dL (0.6-1.0)
[2024-05-29 15:25] LABS: TROPONIN I HIGH SENSITIVITY 1480 ng/L (3.0-34)
[2024-05-29 16:24] LABS: IRON 26 ug/dL (50-170)
[2024-05-29 16:26] LABS: TOTAL IRON BINDING CAPACITY 453 ug/dl (250-425)
[2024-05-29] MEDS: VANCOMYCIN 1G PREMIX 200 ML IV NR (17:00)
[2024-05-29 17:34] LABS: TROPONIN I HIGH SENSITIVITY 1443 ng/L (3.0-34)
[2024-05-29] MEDS ORDERED: DEXTROSE 50% WATER 50ML SYRINGE IV PRN (21:30)
[2024-05-29] MEDS ORDERED: CLONIDINE 0.1MG TABLET PO PRN (21:45)
[2024-05-29] MEDS ORDERED: DOCUSATE SODIUM 100MG CAPSULE PO PRN (21:45)
[2024-05-29] MEDS: SODIUM CHLORIDE 0.9% 1,000 ML IV SCH (23:32)
[2024-05-30] VITALS (9 sets, daily range): BP systolic 90–134; BP diastolic 39–75; PULSE 81–100; RESP 14–30; TEMP 36.33624–36.696; O2SAT 94–100
[2024-05-30 00:07] LABS: TROPONIN I HIGH SENSITIVITY 1417 ng/L (3.0-34)
[2024-05-30] MEDS: PIPERACILLIN/TAZO 3.375G/50ML 50 ML IV SCH (04:35)
[2024-05-30 07:25] LABS: HEMATOCRIT. 25.4 % (36.0-48.0); HEMOGLOBIN. 8.5 g/dL (12.0-16.0); MEAN CORPUSCULAR HEMOGLOBIN 27.7 pg (28.0-32.0); MEAN CORPUSCULAR HGB CONC 33.5 g/dL (31.0-37.0); MEAN CORPUSCULAR VOLUME 82.8 fL (81.0-99.0); MEAN PLATELET VOLUME 8.6 fl (7.4-10.4); PLATELET 245 x1000/uL (130-400); RED BLOOD CELL COUNT 3.06 mill/uL (4.2-5.4); RED CELL DISTRIBUTION WIDTH 13.4 % (11.6-14.6); WHITE BLOOD COUNT 16.2 x1000/uL (4.5-11.0)
[2024-05-30 07:36] LABS: CHLORIDE 99 mEq/L (98-107); POTASSIUM 4.1 mEq/L (3.5-5.1); SODIUM 137 mEq/L (136-145)
[2024-05-30 07:37] LABS: CALCIUM 8.5 mg/dL (8.7-10.4); CARBON DIOXIDE 24 mEq/L (21-32)
[2024-05-30 07:38] LABS: DIFFERENTIAL COMMENT 1
[2024-05-30 07:42] LABS: CREATININE 3.9 mg/dL (0.6-1.0); GLUCOSE 228 mg/dL (70-105); UREA NITROGEN BLOOD 86 mg/dL (9-23)
[2024-05-30 07:44] LABS: ALANINE AMINOTRANSFERASE 93 IU/L (10-49); ALBUMIN 3.9 g/dL (3.2-4.8); ASPARTATE AMINOTRANSFERASE 43 IU/L (<34); BILIRUBIN DIRECT 0.3 mg/dL (<=3.0); BILIRUBIN TOTAL 0.8 mg/dL (0.1-1.0); PROTEIN TOTAL 6.7 g/dL (6.0-8.3)
[2024-05-30 07:58] LABS: TROPONIN I HIGH SENSITIVITY 1147 ng/L (3.0-34)
[2024-05-30] MEDS: INSULIN LISPRO 100 UNITS/ML SUBCUT SCH (08:46)
[2024-05-30] MEDS: BLOOD SUGAR DIAGNOSTIC STRIP TEST SCH (09:05)
[2024-05-30 10:17] LABS: CLARITY URINE CLOUDY (CLEAR); COLOR URINE YELLOW (YELLOW); GLUCOSE URINE 3+ (NEGATIVE); KETONES URINE NEGATIVE (NEGATIVE); LEUKOCYTE ESTERASE URINE 2+ (NEGATIVE); NITRITE URINE NEGATIVE (NEGATIVE); OCCULT BLOOD URINE NEGATIVE (NEGATIVE); PH URINE 5.5 (4.5-8.0); PROTEIN URINE TRACE (NEGATIVE); SPECIFIC GRAVITY URINE 1.017 (1.005-1.030); UROBILINOGEN URINE 0.2 E.U./dL (0.2-1.0)
[2024-05-30 11:22] LABS: SQUAMOUS EPITHELIAL CELL URINE 2+ /lpf (RARE/1+)
[2024-05-30 11:23] LABS: WBC URINE 25-50 /hpf (0-2)
[2024-05-30 11:24] LABS: BACTERIA URINE 2+; RBC URINE 0-2 /hpf (0-2); YEAST URINE 1+
[2024-05-30 11:51] LABS: PLATELET ESTIMATE NORMAL
[2024-05-30] MEDS: ACETAMINOPHEN 325MG TABLET PO PRN (13:48)
[2024-05-30 17:14] LABS: THYROID STIMULATING HORMONE 0.66 uIU/mL (0.55-4.78)
[2024-05-30 17:23] LABS: HEPATITIS B SURFACE ANTIGEN NEGATIVE (Negative)
[2024-05-30 17:45] LABS: HEPATITIS C AB NON REACTIVE (Neg) (Negative)
[2024-05-31] VITALS (15 sets, daily range): BP systolic 102–140; BP diastolic 39–81; PULSE 93–104; RESP 18–37; TEMP 36.114–36.55848; O2SAT 93–97
[2024-05-31] MEDS: ONDANSETRON HCL 4MG/2ML INJ IV PRN (03:33)
[2024-05-31 07:12] LABS: CHLORIDE 100 mEq/L (98-107); POTASSIUM 3.7 mEq/L (3.5-5.1); SODIUM 138 mEq/L (136-145)
[2024-05-31 07:13] LABS: CALCIUM 8.7 mg/dL (8.7-10.4); CARBON DIOXIDE 24 mEq/L (21-32)
[2024-05-31 07:18] LABS: CREATININE 3.5 mg/dL (0.6-1.0); GLUCOSE 90 mg/dL (70-105); UREA NITROGEN BLOOD 86 mg/dL (9-23)
[2024-05-31 07:18] LABS: HEMATOCRIT. 26.2 % (36.0-48.0); HEMOGLOBIN. 8.6 g/dL (12.0-16.0); MEAN CORPUSCULAR HEMOGLOBIN 27.4 pg (28.0-32.0); MEAN CORPUSCULAR HGB CONC 32.9 g/dL (31.0-37.0); MEAN CORPUSCULAR VOLUME 83.3 fL (81.0-99.0); MEAN PLATELET VOLUME 8.7 fl (7.4-10.4); PLATELET 273 x1000/uL (130-400); RED BLOOD CELL COUNT 3.15 mill/uL (4.2-5.4); RED CELL DISTRIBUTION WIDTH 13.6 % (11.6-14.6); WHITE BLOOD COUNT 15.4 x1000/uL (4.5-11.0)
[2024-05-31 07:20] LABS: ALANINE AMINOTRANSFERASE 64 IU/L (10-49); ALBUMIN 3.8 g/dL (3.2-4.8); ASPARTATE AMINOTRANSFERASE 24 IU/L (<34); BILIRUBIN DIRECT 0.2 mg/dL (<=3.0); CREATINE KINASE 556 IU/L (34-145); PHOSPHORUS 5.4 mg/dL (2.5-4.9); PROTEIN TOTAL 6.6 g/dL (6.0-8.3)
[2024-05-31 07:21] LABS: BILIRUBIN TOTAL 0.6 mg/dL (0.1-1.0)
[2024-05-31 07:45] LABS: DIFFERENTIAL COMMENT 1
[2024-05-31] MEDS: VANCOMYCIN 500MG/100ML IV NR (13:47)
[2024-05-31 21:48] LABS: PLATELET ESTIMATE NORMAL
[2024-06-01] VITALS (13 sets, daily range): BP systolic 115–148; BP diastolic 57–77; PULSE 85–101; RESP 12–21; TEMP 36.3918–37.44744; O2SAT 92–99
[2024-06-01 07:12] LABS: CHLORIDE 103 mEq/L (98-107); SODIUM 136 mEq/L (136-145)
[2024-06-01 07:13] LABS: CALCIUM 8.6 mg/dL (8.7-10.4); CARBON DIOXIDE 25 mEq/L (21-32)
[2024-06-01 07:16] LABS: UREA NITROGEN BLOOD 74 mg/dL (9-23)
[2024-06-01 07:18] LABS: CREATININE 3.2 mg/dL (0.6-1.0); GLUCOSE 123 mg/dL (70-105)
[2024-06-01 07:19] LABS: ALANINE AMINOTRANSFERASE 53 IU/L (10-49); ALBUMIN 3.5 g/dL (3.2-4.8)
[2024-06-01] MEDS ORDERED: IODIXANOL 320 MG/ML 150ML BOTTLE IV ONE (07:19)
[2024-06-01 07:20] LABS: ASPARTATE AMINOTRANSFERASE 20 IU/L (<34); BILIRUBIN DIRECT 0.3 mg/dL (<=3.0); BILIRUBIN TOTAL 0.7 mg/dL (0.1-1.0); PHOSPHORUS 4.7 mg/dL (2.5-4.9); PROTEIN TOTAL 6.2 g/dL (6.0-8.3)
[2024-06-01] MEDS ORDERED: HEPARIN 1000 UNITS/ML 10ML ONE (07:20)
[2024-06-01] MEDS ORDERED: LIDOCAINE HCL 1% 20ML VIAL ONE (07:20)
[2024-06-01 07:42] LABS: BASOPHILS % 0.5 % (0.0-2.0); EOSINOPHILS % 1.3 % (0.0-5.0); HEMATOCRIT. 24.1 % (36.0-48.0); HEMOGLOBIN. 8.2 g/dL (12.0-16.0); LYMPHOCYTES % 7.4 % (20.0-50.0); MEAN CORPUSCULAR HEMOGLOBIN 28.6 pg (28.0-32.0); MEAN PLATELET VOLUME 8.2 fl (7.4-10.4); MONOCYTES % 4.3 % (2.0-8.0); NEUTROPHILS % 86.5 % (40.0-76.0); PLATELET 263 x1000/uL (130-400); RED BLOOD CELL COUNT 2.86 mill/uL (4.2-5.4); RED CELL DISTRIBUTION WIDTH 13.6 % (11.6-14.6); WHITE BLOOD COUNT 10.8 x1000/uL (4.5-11.0)
[2024-06-01] MEDS ORDERED: FENTANYL CITRATE/PF 50MCG/ML 2ML VIAL ONE (07:57)
[2024-06-01] MEDS ORDERED: MIDAZOLAM HCL 2 MG/2 ML VIAL ONE (07:57)
[2024-06-01] MEDS ORDERED: CLOPIDOGREL 75MG TABLET ONE (09:05)
[2024-06-01] MEDS: ASPIRIN 81MG TABLET PO SCH (11:10)
[2024-06-02] VITALS (38 sets, daily range): BP systolic 111–152; BP diastolic 54–86; PULSE 81–110; RESP 10–39; TEMP 35.89176–37.00296; O2SAT 95–100
[2024-06-02] MEDS: ACETAMINOPHEN 325MG TABLET PO PRN (00:07)
[2024-06-02 07:30] LABS: CHLORIDE 106 mEq/L (98-107); POTASSIUM 4.6 mEq/L (3.5-5.1); SODIUM 138 mEq/L (136-145)
[2024-06-02 07:32] LABS: CALCIUM 8.6 mg/dL (8.7-10.4); CARBON DIOXIDE 23 mEq/L (21-32)
[2024-06-02 07:37] LABS: CREATININE 2.9 mg/dL (0.6-1.0); UREA NITROGEN BLOOD 72 mg/dL (9-23)
[2024-06-02 07:38] LABS: GLUCOSE 96 mg/dL (70-105)
[2024-06-02 07:39] LABS: ALANINE AMINOTRANSFERASE 55 IU/L (10-49); ALBUMIN 3.6 g/dL (3.2-4.8); ASPARTATE AMINOTRANSFERASE 25 IU/L (<34)
[2024-06-02 07:40] LABS: BILIRUBIN DIRECT 0.3 mg/dL (<=3.0); BILIRUBIN TOTAL 0.6 mg/dL (0.1-1.0); PHOSPHORUS 5.2 mg/dL (2.5-4.9); PROTEIN TOTAL 6.2 g/dL (6.0-8.3)
[2024-06-02 08:20] LABS: BASOPHILS % 0.3 % (0.0-2.0); EOSINOPHILS % 2.9 % (0.0-5.0); HEMATOCRIT. 25.8 % (36.0-48.0); HEMOGLOBIN. 8.4 g/dL (12.0-16.0); LYMPHOCYTES % 9.7 % (20.0-50.0); MEAN CORPUSCULAR HEMOGLOBIN 27.8 pg (28.0-32.0); MEAN CORPUSCULAR HGB CONC 32.5 g/dL (31.0-37.0); MEAN CORPUSCULAR VOLUME 85.3 fL (81.0-99.0); MEAN PLATELET VOLUME 8.2 fl (7.4-10.4); MONOCYTES % 5.7 % (2.0-8.0); NEUTROPHILS % 81.4 % (40.0-76.0); PLATELET 273 x1000/uL (130-400); RED BLOOD CELL COUNT 3.02 mill/uL (4.2-5.4); RED CELL DISTRIBUTION WIDTH 13.9 % (11.6-14.6); WHITE BLOOD COUNT 9.7 x1000/uL (4.5-11.0)
[2024-06-02 10:06] LABS: BG BASE EXCESS -4.7 mmol/L (-2.0-3.0); BG CARBOXYHEMOGLOBIN 0.3 % (0.5-1.5); BG DEOXYHEMOGLOBIN 2.2 % (0.0-5.0); BG FRACTION INSPIRED OXYGEN 100; BG HCO3 ACT 22.3 mmol/L (21.0-28.0); BG METHEMOGLOBIN 0.3 % (0.5-1.5); BG OXYGEN SATURATION 97.8 % (94.0-98.0); BG OXYHEMOGLOBIN 97.2 % (94.0-98.0); BG PCO2 50.3 mmHg (32.0-45.0); BG PH 7.264 (7.350-7.450); BG PO2 115.9 mmHg (83.0-108.0); BG SAMPLE SITE LEFT BRACHIAL; BG VENT MODE MASK - NRB
[2024-06-02] MEDS: IPRATROPIUM/ALBUTEROL 0.5-3(2.5)MG/3ML NEB HHN PRN (10:16)
[2024-06-02] MEDS: METHYLPREDNISOLONE SOD SUCC 40MG/ML (ACT-O-VIAL) IV SCH (11:55)
[2024-06-02] MEDS: FUROSEMIDE 20MG/2ML VIAL IVP NR (11:55)
[2024-06-02 13:23] LABS: BG BASE EXCESS -3.9 mmol/L (-2.0-3.0); BG CARBOXYHEMOGLOBIN 0.2 % (0.5-1.5); BG DEOXYHEMOGLOBIN 0.2 % (0.0-5.0); BG HCO3 ACT 21.8 mmol/L (21.0-28.0); BG METHEMOGLOBIN 0.3 % (0.5-1.5); BG OXYGEN SATURATION 99.8 % (94.0-98.0); BG OXYHEMOGLOBIN 99.3 % (94.0-98.0); BG PCO2 42.6 mmHg (32.0-45.0); BG PH 7.327 (7.350-7.450); BG PO2 456.8 mmHg (83.0-108.0); BG SAMPLE SITE LEFT RADIAL; BG TOTAL HEMOGLOBIN 9.6 g/dL (12.0-16.0); BG VENT MODE MASK - BIPAP
[2024-06-02] MEDS: IPRATROPIUM/ALBUTEROL 0.5-3(2.5)MG/3ML NEB HHN SCH (13:36)
[2024-06-02] MEDS: VANCOMYCIN 1G PREMIX 200 ML IV SCH (15:51)
[2024-06-02] MEDS: ENOXAPARIN 30MG/0.3ML SYR SUBCUT SCH (16:09)
[2024-06-03] VITALS (59 sets, daily range): BP systolic 94–157; BP diastolic 46–110; PULSE 96–128; RESP 11–38; TEMP 36.50292–37.11408; O2SAT 91–100
[2024-06-03 05:24] LABS: HEMATOCRIT. 24.7 % (36.0-48.0); HEMOGLOBIN. 8.1 g/dL (12.0-16.0); MEAN CORPUSCULAR HEMOGLOBIN 27.8 pg (28.0-32.0); MEAN CORPUSCULAR HGB CONC 32.8 g/dL (31.0-37.0); MEAN PLATELET VOLUME 8.2 fl (7.4-10.4); PLATELET 246 x1000/uL (130-400); POTASSIUM 4.5 mEq/L (3.5-5.1); RED BLOOD CELL COUNT 2.91 mill/uL (4.2-5.4); RED CELL DISTRIBUTION WIDTH 13.6 % (11.6-14.6); WHITE BLOOD COUNT 5.3 x1000/uL (4.5-11.0)
[2024-06-03 05:25] LABS: CALCIUM 9.1 mg/dL (8.7-10.4)
[2024-06-03 05:28] LABS: CREATININE 2.8 mg/dL (0.6-1.0)
[2024-06-03 05:29] LABS: DIFFERENTIAL COMMENT 1
[2024-06-03 07:51] LABS: BG CARBOXYHEMOGLOBIN 0.5 % (0.5-1.5); BG DEOXYHEMOGLOBIN 4.9 % (0.0-5.0); BG HCO3 ACT 19.9 mmol/L (21.0-28.0); BG METHEMOGLOBIN 0.3 % (0.5-1.5); BG OXYGEN SATURATION 95.1 % (94.0-98.0); BG OXYHEMOGLOBIN 94.3 % (94.0-98.0); BG PCO2 35.7 mmHg (32.0-45.0); BG PH 7.363 (7.350-7.450); BG PO2 84.7 mmHg (83.0-108.0); BG SAMPLE SITE LEFT BRACHIAL; BG TOTAL HEMOGLOBIN 8.6 g/dL (12.0-16.0); BG VENT MODE NASAL CANNULA
[2024-06-03 09:16] LABS: PLATELET ESTIMATE NORMAL
[2024-06-03] MEDS: INSULIN LISPRO 100 UNITS/ML SUBCUT SCH ×2 (12:00→17:21)
[2024-06-03] MEDS ORDERED: INSULIN REGULAR (HUMULIN R) UD 100 UNITS/ML SYR IV ONE (12:15)
[2024-06-03] MEDS: FUROSEMIDE 40MG/4ML VIAL IVP NR (12:25)
[2024-06-03] MEDS: INSULIN GLARGINE 100 UNITS/ML SUBCUT SCH ×2 (12:26→23:05)
[2024-06-03] MEDS ORDERED: INSULIN REGULAR (HUMULIN R) 1000UNITS/10ML VIAL SUBCUT NR (16:45)
[2024-06-03] MEDS: INSULIN REGULAR (HUMULIN R) UD 100 UNITS/ML SYR IV ONE (17:01)
[2024-06-03 17:13] LABS: PROTHROMBIN TIME 11.6 sec (9.6-11.0)
[2024-06-03] MEDS: INSULIN REGULAR (HUMULIN R) 1000UNITS/10ML VIAL IV NR (17:22)
[2024-06-03 19:28] LABS: PROTHROMBIN TIME 11.6 sec (9.6-11.0)
[2024-06-03] MEDS ORDERED: INSULIN GLARGINE 100 UNITS/ML SUBCUT SCH (21:00)
[2024-06-04] VITALS (60 sets, daily range): BP systolic 96–140; BP diastolic 51–113; PULSE 95–121; RESP 11–32; TEMP 36.61404–37.16964; O2SAT 84–100
[2024-06-04 05:18] LABS: CARBON DIOXIDE 24 mEq/L (21-32); CHLORIDE 100 mEq/L (98-107); HEMATOCRIT. 24.6 % (36.0-48.0); HEMOGLOBIN. 8.1 g/dL (12.0-16.0); MEAN CORPUSCULAR HEMOGLOBIN 27.7 pg (28.0-32.0); MEAN CORPUSCULAR VOLUME 83.8 fL (81.0-99.0); MEAN PLATELET VOLUME 8.1 fl (7.4-10.4); PLATELET 263 x1000/uL (130-400); POTASSIUM 4.5 mEq/L (3.5-5.1); RED BLOOD CELL COUNT 2.93 mill/uL (4.2-5.4); RED CELL DISTRIBUTION WIDTH 13.7 % (11.6-14.6); SODIUM 134 mEq/L (136-145); WHITE BLOOD COUNT 12.5 x1000/uL (4.5-11.0)
[2024-06-04 05:19] LABS: CALCIUM 9.5 mg/dL (8.7-10.4)
[2024-06-04 05:23] LABS: CREATININE 2.9 mg/dL (0.6-1.0); GLUCOSE 261 mg/dL (70-105)
[2024-06-04 05:24] LABS: UREA NITROGEN BLOOD 83 mg/dL (9-23)
[2024-06-04 05:25] LABS: LACTATE DEHYDROGENASE 293 IU/L (120-246)
[2024-06-04 05:26] LABS: PHOSPHORUS 5.1 mg/dL (2.5-4.9)
[2024-06-04 06:45] LABS: DIFFERENTIAL COMMENT 1
[2024-06-04 10:42] LABS: PLATELET ESTIMATE NORMAL
[2024-06-04 10:42] LABS: BG BASE EXCESS -1.5 mmol/L (-2.0-3.0); BG CARBOXYHEMOGLOBIN 0.7 % (0.5-1.5); BG DEOXYHEMOGLOBIN 4.4 % (0.0-5.0); BG FRACTION INSPIRED OXYGEN 35; BG HCO3 ACT 23.2 mmol/L (21.0-28.0); BG METHEMOGLOBIN 0.3 % (0.5-1.5); BG OXYGEN SATURATION 95.6 % (94.0-98.0); BG OXYHEMOGLOBIN 94.6 % (94.0-98.0); BG PCO2 38.5 mmHg (32.0-45.0); BG PH 7.397 (7.350-7.450); BG PO2 77.4 mmHg (83.0-108.0); BG SAMPLE SITE RIGHT BRACHIAL; BG VENT MODE MASK - BIPAP
[2024-06-04 11:05] LABS: PROTEIN BODY FLUID < 2.0 gm/dL
[2024-06-04 12:10] LABS: BODY FLUID RBC 15 /cu mm (0-2000); BODY FLUID WBC 23 /cu mm (0-200)
[2024-06-04] MEDS: FUROSEMIDE 40MG/4ML VIAL IVP SCH (13:11)
[2024-06-04 14:29] LABS: CREATINE KINASE 129 IU/L (34-145)
[2024-06-04] MEDS: DOXYCYCLINE HYCLATE 100MG CAPSULE PO SCH (20:30)
[2024-06-05] VITALS (38 sets, daily range): BP systolic 109–138; BP diastolic 51–117; PULSE 95–115; RESP 12–34; TEMP 36.55848–36.78072; O2SAT 90–99
[2024-06-05 05:26] LABS: HEMATOCRIT. 24.4 % (36.0-48.0); HEMOGLOBIN. 8.2 g/dL (12.0-16.0); MEAN CORPUSCULAR HEMOGLOBIN 28.4 pg (28.0-32.0); MEAN CORPUSCULAR HGB CONC 33.5 g/dL (31.0-37.0); MEAN CORPUSCULAR VOLUME 84.8 fL (81.0-99.0); MEAN PLATELET VOLUME 8.2 fl (7.4-10.4); PLATELET 263 x1000/uL (130-400); RED BLOOD CELL COUNT 2.88 mill/uL (4.2-5.4); RED CELL DISTRIBUTION WIDTH 13.6 % (11.6-14.6); WHITE BLOOD COUNT 12.9 x1000/uL (4.5-11.0)
[2024-06-05 05:31] LABS: CHLORIDE 99 mEq/L (98-107); SODIUM 132 mEq/L (136-145)
[2024-06-05 05:36] LABS: CARBON DIOXIDE 22 mEq/L (21-32)
[2024-06-05 05:37] LABS: CALCIUM 9.1 mg/dL (8.7-10.4)
[2024-06-05 05:41] LABS: ALANINE AMINOTRANSFERASE 40 IU/L (10-49); ASPARTATE AMINOTRANSFERASE 17 IU/L (<34); GLUCOSE 265 mg/dL (70-105)
[2024-06-05 05:42] LABS: UREA NITROGEN BLOOD 97 mg/dL (9-23)
[2024-06-05 05:43] LABS: ALBUMIN 3.6 g/dL (3.2-4.8)
[2024-06-05 05:44] LABS: BILIRUBIN DIRECT 0.1 mg/dL (<=3.0); BILIRUBIN TOTAL 0.4 mg/dL (0.1-1.0); PHOSPHORUS 5.4 mg/dL (2.5-4.9)
[2024-06-05 07:25] LABS: DIFFERENTIAL COMMENT 1
[2024-06-05] MEDS: FUROSEMIDE 40MG/4ML VIAL IVP NR (09:22)
[2024-06-05 14:13] LABS: BG BASE EXCESS -1.7 mmol/L (-2.0-3.0); BG CARBOXYHEMOGLOBIN 0.5 % (0.5-1.5); BG DEOXYHEMOGLOBIN 6.1 % (0.0-5.0); BG FRACTION INSPIRED OXYGEN 50; BG HCO3 ACT 22.3 mmol/L (21.0-28.0); BG METHEMOGLOBIN 0.3 % (0.5-1.5); BG OXYGEN SATURATION 93.9 % (94.0-98.0); BG OXYHEMOGLOBIN 93.1 % (94.0-98.0); BG PCO2 34.7 mmHg (32.0-45.0); BG PH 7.425 (7.350-7.450); BG PO2 66.9 mmHg (83.0-108.0); BG SAMPLE SITE LEFT BRACHIAL; BG TOTAL HEMOGLOBIN 9.4 g/dL (12.0-16.0); BG VENT MODE MASK - BIPAP
[2024-06-05 17:04] LABS: PLATELET ESTIMATE NORMAL
[2024-06-05] MEDS: FUROSEMIDE 100MG/10ML VIAL IVP SCH (20:21)
[2024-06-06] VITALS (18 sets, daily range): BP systolic 121–145; BP diastolic 44–113; PULSE 96–115; RESP 12–28; TEMP 35.66952–36.44736; O2SAT 92–100
[2024-06-06] MEDS: AZITHROMYCIN 500MG/250ML 250 ML IV SCH (00:46)
[2024-06-06] MEDS: ACETYLCYSTEINE 200MG/ML 20% VIAL 4ML INH SCH (01:37)
[2024-06-06] MEDS ORDERED: MAGNESIUM/ALUMINUM HYDROXIDE/SIMETHICONE 30ML UDC PO PRN (03:45)
[2024-06-06] MEDS: FUROSEMIDE 100MG/10ML VIAL IVP SCH (05:43)
[2024-06-06 06:08] LABS: HEMATOCRIT. 29.2 % (36.0-48.0); HEMOGLOBIN. 9.5 g/dL (12.0-16.0); MEAN CORPUSCULAR HEMOGLOBIN 27.5 pg (28.0-32.0); MEAN CORPUSCULAR HGB CONC 32.6 g/dL (31.0-37.0); MEAN CORPUSCULAR VOLUME 84.5 fL (81.0-99.0); MEAN PLATELET VOLUME 8.2 fl (7.4-10.4); PLATELET 346 x1000/uL (130-400); RED BLOOD CELL COUNT 3.45 mill/uL (4.2-5.4); RED CELL DISTRIBUTION WIDTH 13.8 % (11.6-14.6)
[2024-06-06 06:34] LABS: DIFFERENTIAL COMMENT 1
[2024-06-06 06:39] LABS: CARBON DIOXIDE 24 mEq/L (21-32); CHLORIDE 101 mEq/L (98-107); SODIUM 135 mEq/L (136-145)
[2024-06-06 06:41] LABS: CALCIUM 9.3 mg/dL (8.7-10.4)
[2024-06-06 06:43] LABS: CREATININE 2.7 mg/dL (0.6-1.0)
[2024-06-06 06:45] LABS: GLUCOSE 95 mg/dL (70-105)
[2024-06-06 06:47] LABS: PHOSPHORUS 5.5 mg/dL (2.5-4.9)
[2024-06-06 06:53] LABS: UREA NITROGEN BLOOD 104 mg/dL (9-23)
[2024-06-06 07:04] LABS: BG BASE EXCESS -1.1 mmol/L (-2.0-3.0); BG CARBOXYHEMOGLOBIN 1.4 % (0.5-1.5); BG DEOXYHEMOGLOBIN 9.8 % (0.0-5.0); BG FRACTION INSPIRED OXYGEN 65; BG HCO3 ACT 24.1 mmol/L (21.0-28.0); BG METHEMOGLOBIN 0.3 % (0.5-1.5); BG OXYHEMOGLOBIN 88.5 % (94.0-98.0); BG PCO2 42.2 mmHg (32.0-45.0); BG PH 7.374 (7.350-7.450); BG PO2 57.7 mmHg (83.0-108.0); BG SAMPLE SITE RIGHT RADIAL; BG TOTAL HEMOGLOBIN 9.8 g/dL (12.0-16.0); BG TOTAL RESPIRATORY RATE 18 b/min; BG VENT MODE MASK - BIPAP
[2024-06-06] MEDS ORDERED: HEPARIN 1000 UNITS/ML 10ML ONE (10:45)
[2024-06-06] MEDS ORDERED: LIDOCAINE HCL 1% 10 MG/ML 10ML VIAL ONE (10:45)
[2024-06-06 12:28] LABS: HEPATITIS B SURFACE ANTIGEN NEGATIVE (Negative)
[2024-06-06 12:49] LABS: HEPATITIS A AB IGM NEGATIVE (Negative)
[2024-06-06 12:50] LABS: HEPATITIS B CORE AB IGM NEGATIVE (Negative); HEPATITIS C AB NON REACTIVE (Neg) (Negative)
[2024-06-06 15:20] LABS: PLATELET ESTIMATE NORMAL
[2024-06-06 20:23] LABS: BG BASE EXCESS 3.6 mmol/L (-2.0-3.0); BG CARBOXYHEMOGLOBIN 0.3 % (0.5-1.5); BG DEOXYHEMOGLOBIN 0.5 % (0.0-5.0); BG FRACTION INSPIRED OXYGEN 100; BG HCO3 ACT 27.6 mmol/L (21.0-28.0); BG METHEMOGLOBIN 0.3 % (0.5-1.5); BG OXYGEN SATURATION 99.5 % (94.0-98.0); BG OXYHEMOGLOBIN 98.9 % (94.0-98.0); BG PCO2 39.7 mmHg (32.0-45.0); BG PO2 326.7 mmHg (83.0-108.0); BG SAMPLE SITE LEFT BRACHIAL; BG TOTAL HEMOGLOBIN 10.5 g/dL (12.0-16.0); BG VENT MODE HIGH FLOW
[2024-06-07] VITALS (16 sets, daily range): BP systolic 125–153; BP diastolic 52–101; PULSE 78–116; RESP 9–27; TEMP 35.78064–39.00312; O2SAT 97–100
[2024-06-07 07:49] LABS: CARBON DIOXIDE 28 mEq/L (21-32); CHLORIDE 100 mEq/L (98-107); POTASSIUM 4.7 mEq/L (3.5-5.1); SODIUM 137 mEq/L (136-145)
[2024-06-07 07:54] LABS: CREATININE 2.1 mg/dL (0.6-1.0); GLUCOSE 261 mg/dL (70-105)
[2024-06-07 07:55] LABS: UREA NITROGEN BLOOD 75 mg/dL (9-23)
[2024-06-07 07:57] LABS: PHOSPHORUS 5.1 mg/dL (2.5-4.9)
[2024-06-07 08:00] LABS: HEMATOCRIT. 30.1 % (36.0-48.0); HEMOGLOBIN. 9.8 g/dL (12.0-16.0); MEAN CORPUSCULAR HEMOGLOBIN 27.3 pg (28.0-32.0); MEAN CORPUSCULAR HGB CONC 32.6 g/dL (31.0-37.0); MEAN CORPUSCULAR VOLUME 83.5 fL (81.0-99.0); MEAN PLATELET VOLUME 8.2 fl (7.4-10.4); PLATELET 332 x1000/uL (130-400); RED CELL DISTRIBUTION WIDTH 14.1 % (11.6-14.6); WHITE BLOOD COUNT 14.4 x1000/uL (4.5-11.0)
[2024-06-07 08:26] LABS: DIFFERENTIAL COMMENT 1
[2024-06-07 18:09] LABS: PLATELET ESTIMATE NORMAL
[2024-06-08] VITALS (23 sets, daily range): BP systolic 96–157; BP diastolic 43–97; PULSE 89–107; RESP 12–20; TEMP 36.16956–37.05852; O2SAT 95–100
[2024-06-08 06:57] LABS: HEMATOCRIT. 32.3 % (36.0-48.0); HEMOGLOBIN. 9.9 g/dL (12.0-16.0); MEAN CORPUSCULAR HEMOGLOBIN 27.3 pg (28.0-32.0); MEAN CORPUSCULAR HGB CONC 30.8 g/dL (31.0-37.0); MEAN CORPUSCULAR VOLUME 88.8 fL (81.0-99.0); PLATELET 296 x1000/uL (130-400); RED BLOOD CELL COUNT 3.64 mill/uL (4.2-5.4); RED CELL DISTRIBUTION WIDTH 14.5 % (11.6-14.6); WHITE BLOOD COUNT 17.1 x1000/uL (4.5-11.0)
[2024-06-08 06:59] LABS: CALCIUM 8.9 mg/dL (8.7-10.4); CARBON DIOXIDE 28 mEq/L (21-32); CHLORIDE 101 mEq/L (98-107); POTASSIUM 5.2 mEq/L (3.5-5.1); SODIUM 135 mEq/L (136-145)
[2024-06-08 07:01] LABS: DIFFERENTIAL COMMENT 1
[2024-06-08 07:04] LABS: CREATININE 2.2 mg/dL (0.6-1.0); GLUCOSE 92 mg/dL (70-105)
[2024-06-08 07:05] LABS: UREA NITROGEN BLOOD 65 mg/dL (9-23)
[2024-06-08 07:07] LABS: PHOSPHORUS 5.1 mg/dL (2.5-4.9)
[2024-06-08 14:26] LABS: BG BASE EXCESS 6.7 mmol/L (-2.0-3.0); BG DEOXYHEMOGLOBIN 1.1 % (0.0-5.0); BG FRACTION INSPIRED OXYGEN 40; BG HCO3 ACT 29.9 mmol/L (21.0-28.0); BG METHEMOGLOBIN 0.3 % (0.5-1.5); BG OXYGEN SATURATION 98.9 % (94.0-98.0); BG OXYHEMOGLOBIN 98.6 % (94.0-98.0); BG PH 7.525 (7.350-7.450); BG SAMPLE SITE LEFT BRACHIAL; BG TOTAL HEMOGLOBIN 10.2 g/dL (12.0-16.0); BG VENT MODE HIGH FLOW
[2024-06-09 16:20] LABS: PLATELET ESTIMATE NORMAL
[2024-06-09] MEDS ORDERED: METHYLPREDNISOLONE SOD SUCC 40MG/ML (ACT-O-VIAL) IV SCH (23:00)
== END 2024-06-08 23:40 | disposition short-term general hospital (02) | DRG 853 ==
LOC: ER 13:14 → EDBEDREQ 14:42 → MICUSO 20:11 → EDBEDREQTM 20:35 → EDBEDREQ 20:35 → EDBEDREQSVC 05-30 02:19 → 5EST 05-30 10:45 → MICUSO 06-02 11:22 → 5EST 06-05 15:35
PROVIDERS: ADMIT Family Medicine Adult Medicine; ATTEND Family Medicine Adult Medicine
PROC: 30233N1 Transfusion of Nonautologous Red Blood Cells into Peripheral Vein, Percutaneous Approach (ICD-10-PCS; 2024-05-29)
PROC: 047L3Z1 Dilation of Left Femoral Artery using Drug-Coated Balloon, Percutaneous Approach (ICD-10-PCS; 2024-06-01)
PROC: 047N3Z1 Dilation of Left Popliteal Artery using Drug-Coated Balloon, Percutaneous Approach (ICD-10-PCS; 2024-06-01)
PROC: 04CL3ZZ Extirpation of Matter from Left Femoral Artery, Percutaneous Approach (ICD-10-PCS; 2024-06-01)
PROC: 04CN3ZZ Extirpation of Matter from Left Popliteal Artery, Percutaneous Approach (ICD-10-PCS; 2024-06-01)
PROC: 047N3ZZ Dilation of Left Popliteal Artery, Percutaneous Approach (ICD-10-PCS; 2024-06-01)
PROC: B41J1ZZ Fluoroscopy of Other Lower Arteries using Low Osmolar Contrast (ICD-10-PCS; 2024-06-01)
PROC: 5A09357 Assistance with Respiratory Ventilation, Less than 24 Consecutive Hours, Continuous Positive Airway Pressure (ICD-10-PCS; principal; 2024-06-02)
PROC: 5A09357 Assistance with Respiratory Ventilation, Less than 24 Consecutive Hours, Continuous Positive Airway Pressure (ICD-10-PCS; 2024-06-03)
PROC: 0W993ZZ Drainage of Right Pleural Cavity, Percutaneous Approach (ICD-10-PCS; 2024-06-04)
PROC: 5A09457 Assistance with Respiratory Ventilation, 24-96 Consecutive Hours, Continuous Positive Airway Pressure (ICD-10-PCS; 2024-06-04)
PROC: 5A0945A Assistance with Respiratory Ventilation, 24-96 Consecutive Hours, High Flow/Velocity Cannula (ICD-10-PCS; 2024-06-05)
PROC: 02HV33Z Insertion of Infusion Device into Superior Vena Cava, Percutaneous Approach (ICD-10-PCS; 2024-06-06)
PROC: B5181ZA Fluoroscopy of Superior Vena Cava using Low Osmolar Contrast, Guidance (ICD-10-PCS; 2024-06-06)
PROC: 5A1D70Z Performance of Urinary Filtration, Intermittent, Less than 6 Hours Per Day (ICD-10-PCS; 2024-06-06)
PROC: 5A1D70Z Performance of Urinary Filtration, Intermittent, Less than 6 Hours Per Day (ICD-10-PCS; 2024-06-08)
DX: A41.9 Sepsis, unspecified organism (principal); I21.A1 Myocardial infarction type 2; N18.6 End stage renal disease; J96.01 Acute respiratory failure with hypoxia; J96.02 Acute respiratory failure with hypercapnia; J18.9 Pneumonia, unspecified organism; N17.9 Acute kidney failure, unspecified; J44.0 Chronic obstructive pulmonary disease with (acute) lower respiratory infection; N39.0 Urinary tract infection, site not specified; E87.1 Hypo-osmolality and hyponatremia; E87.29 Other acidosis; I12.0 Hypertensive chronic kidney disease with stage 5 chronic kidney disease or end stage renal disease; D50.9 Iron deficiency anemia, unspecified; Z20.822 Contact with and (suspected) exposure to COVID-19; E78.5 Hyperlipidemia, unspecified; F32.A Depression, unspecified; L89.629 Pressure ulcer of left heel, unspecified stage; R65.20 Severe sepsis without septic shock; L97.529 Non-pressure chronic ulcer of other part of left foot with unspecified severity; E11.621 Type 2 diabetes mellitus with foot ulcer; E11.51 Type 2 diabetes mellitus with diabetic peripheral angiopathy without gangrene; E11.22 Type 2 diabetes mellitus with diabetic chronic kidney disease; T38.0X5A Adverse effect of glucocorticoids and synthetic analogues, initial encounter; Z79.4 Long term (current) use of insulin; Z79.82 Long term (current) use of aspirin; Z79.84 Long term (current) use of oral hypoglycemic drugs; Z83.3 Family history of diabetes mellitus; Z87.891 Personal history of nicotine dependence; Y92.89 Other specified places as the place of occurrence of the external cause
CPT/HCPCS: 32555; 36415; 36556; 36600; 71045; 71250; 73630; 74018; 74176; 76770; 76937; 78580; 80048; 80061; 80076; 80202; 81003; 82040; 82375; 82550; 82805; 82962; 83036; 83540; 83550; 83605; 83615; 83735; 83880; 84100; 84145; 84443; 84484; 85025; 85044; 85347; 85379; 85651; 86705; 86709; 86850; 86870; 86900; 86920; 87070; 87077; 87186; 87340; 87426; 87804; 88108; 88312; 90935; 93005; 93306; 93923; 93971; 94640; 94660; 99291; C1752; J0456; J0696; J1644; J1650; J1815; J1940; J2250; J2405; J2543; J2920; J3010; J3370; J3490; J7030; J7608; P9016; Q9967